=== PATIENT | female | born 1940 | race Caucasian/White ===

== ENCOUNTER → 2016-12-07 | Outpatient (CLI) | payer MEDICARE, OTHER ==
[2016-12-07 11:51] LABS: Blood Urea Nitrogen 16 mg/dL (7-17); Non-African American GFR(MDRD) >60 (>60 ml/min/1.73 sqM)
--- NOTE | 2016-12-07 12:45 | CT ---
EXAMINATION TYPE: CT soft tissue neck w con DATE OF EXAM: 12/07/2016 COMPARISON: NONE HISTORY: sore throat, feels like something is caught in throat CT DLP: 717 mGycm CONTRAST: CT scan of the neck is performed with IV Contrast, patient injected with 100 mL of Omnipaque 300. Contrast enhanced CT of the neck was performed from the skull base through the lung apices. AIRWAY: There is nonmass thickening of the left vallecula. Right vallecula is unremarkable. Pyrifor m sinuses are within normal limits. Epiglottis has a normal appearance. The the remainder of the supr aglottic, glottic, and subglottic portions of the airway appear patent and free of mass. SALIVARY GLANDS: The submandibular and parotid glands are free of mass or inflammatory process. THYROID GLAND: No nodules or masses seen. LYMPH NODES: No adenopathy seen greater than 1cm. LUNG APICES: No nodule or mass is seen. OTHER: Vascular structures are patent. No significant degenerative change of the cervical spine. N o abscess seen. IMPRESSION: There is nonmass thickening of the left vallecula. Right vallecula is unremarkable. Correlate clinic ally and consider direct visualization.
== END | disposition home or self-care (01) ==
LOC: RADCTMAIN 11:19
PROVIDERS: ATTEND Otolaryngology
DX: J38.7 Other diseases of larynx (principal); R22.1 Localized swelling, mass and lump, neck; Z88.0 Allergy status to penicillin; Z91.041 Radiographic dye allergy status
CPT/HCPCS: 82565; 84520; 70491; 36415; Q9967

== ENCOUNTER 2017-02-01 07:38 | Day surgery (SDC) | payer MEDICARE, OTHER ==
[2017-01-27 13:35] VITALS: BMI 31.1
[~2017-02-01 07:38] MED LIST: DEXAMETHASONE SOD PHOSPHATE 10 MG/ML 1 ML VIAL IV ONE; DEXAMETHASONE SOD PHOSPHATE 4 MG/ML 1 ML VIAL IV ONE; FAMOTIDINE 20 MG/2 ML VIAL IV ONE; HYDROmorphone 0.5 MG/0.5 ML SYRINGE IVP PRN; LACTATED RINGERS 1,000 ML IV SCH; LIDOCAINE 1% 20 ML VIAL (10MG/ML) FOR IV START INTRADERMA PRN; MIDAZOLAM 2 MG/2 ML VIAL IV PRN; ONDANSETRON 4 MG/2 ML VIAL IVP ONE; Pre Op ABX Message 1 EACH MISC MISCELLANE ONE; SCOPOLAMINE 1.5MG/72HR PATCH TRANSDERM ONE
[2017-02-01] MEDS ORDERED: MIDAZOLAM 2 MG/2 ML VIAL ONE (08:39)
[2017-02-01] MEDS ORDERED: SUCCINYLCHOLINE CHLORIDE 100 MG/5 ML SYR IV ONE (08:39)
[2017-02-01] MEDS ORDERED: fentaNYL (PF) 50 MCG/ML 2 ML AMP ONE (08:39)
[2017-02-01] MEDS ORDERED: ePHEDrine SULFATE/0.9% NACL/PF 50 MG/5 ML SYRINGE IV ONE (08:39)
[2017-02-01] MEDS ORDERED: PROPOFOL 10 MG/ML 20 ML VIAL IV ONE (08:39)
[2017-02-01] MEDS ORDERED: LIDOCAINE 1% INJ 10MG/ML (20 ML MDV) ONE (08:39)
--- NOTE | 2017-02-01 09:10 | P.OP ---
Date of Procedure: 02/01/17 Preoperative Diagnosis: Lingual tonsillar hypertrophy Postoperative Diagnosis: Same Procedure(s) Performed: Direct microlaryngoscopy with biopsy left base of tongue Anesthesia: MARZENAA Surgeon: Narendra Bass Estimated Blood Loss (ml): 2 Pathology: other (Left base of tongue) Condition: stable Disposition: PACU Indications for Procedure: This is a 76-year-old white female whose had some mild chronic sore throat on the left side for multiple months. Antibiotics do tend to help her symptoms but then her symptoms recur. He has been noted to have some lingual tonsillar hypertrophy left greater than right. Operative Findings: Diffuse lingual tonsillar hypertrophy greater on the left was biopsied Description of Procedure: The patient was brought in the operative suite and placed in a supine position. The patient underwent induction of general anesthesia with oral endotracheal intubation without difficulty. The patient was prepped and draped in usual aseptic fashion. Tooth guard was placed and direct laryngoscopy was performed with systematic evaluation of the base of tongue vallecula both piriform sinuses post cricoid area and endolarynx. There was minimal tonsillar hypertrophy although a little bit more on the left with some slight erythema. Therefore the laryngoscope was placed in suspension and the microscope was brought into position and the left base of tongue was biopsied with microcup forceps sites. Hemostasis was gained spontaneously. The patient was then allowed to emerge from anesthesia having tolerated procedure well hemostasis was noted to be good. She was extubated in the operating suite and transferred to postop recovery area in satisfactory condition.
[2017-02-01 09:36] VITALS: TEMP 98.5
[2017-02-01 10:17] VITALS: RESP 18
[2017-02-01] MEDS ORDERED: HYDROcodone/APAP 5-325MG 1 EACH TAB PO ONE (10:30)
[2017-02-01 10:46] VITALS: BP 120/70; PULSE 57
== END 2017-02-01 11:11 | disposition home or self-care (01) ==
LOC: OR 07:38
PROVIDERS: ATTEND Otolaryngology
DX: J35.01 Chronic tonsillitis (principal); I10 Essential (primary) hypertension; K21.9 Gastro-esophageal reflux disease without esophagitis; Z79.82 Long term (current) use of aspirin; Z79.899 Other long term (current) drug therapy; Z79.2 Long term (current) use of antibiotics; Z79.891 Long term (current) use of opiate analgesic; Z79.51 Long term (current) use of inhaled steroids; Z79.52 Long term (current) use of systemic steroids; Z91.041 Radiographic dye allergy status; Z91.011 Allergy to milk products; Z88.0 Allergy status to penicillin; Z91.09 Other allergy status, other than to drugs and biological substances
CPT/HCPCS: 31535; 88305; J2250; J1100; J2405; J2001; J3010; J0330; J2704; J1170

== ENCOUNTER 2017-04-27 15:11 | Emergency (ER) | payer MEDICARE, OTHER ==
[2017-04-27] MEDS ORDERED: methylPREDNISolone SOD SUCCI 125 MG/2 ML VIAL IV STA (15:22)
[2017-04-27] MEDS ORDERED: FAMOTIDINE 20 MG/2 ML VIAL IV STA (15:22)
[2017-04-27] MEDS ORDERED: diphenhydrAMINE 50 MG/ML 1 ML VIAL IVP STA (15:22)
--- NOTE | 2017-04-27 15:25 | ED ---
General Adult HPI - General Chief complaint: Allergic Reaction Stated complaint: Hives Time Seen by Provider: 04/27/17 15:18 Source: patient, family, RN notes reviewed Mode of arrival: wheelchair Limitations: no limitations - History of Present Illness Initial comments: Patient is a pleasant 76-year-old female presenting to the emergency Department with rash. Rash is pruritic. Patient started azithromycin in the morning and then sulfa eyedrops in the evening. Patient woke with rash. Rash is diffuse but more so on the trunk and face. Patient did see her doctor again this morning and received steroid injection without improvement of symptoms. Patient does feel somewhat short of breath and swollen in her throat as well. - Related Data Home Medications Medication Instructions Recorded Confirmed Bisoprol/Hydrochlorothiazide [Ziac 1 tab PO DAILY 06/13/14 04/27/17 5-6.25 MG] Tobra-Dexamet 0.3-0.1% Eye Cathy 1 - 2 drops BOTH EYES QID 04/27/17 04/27/17 [Tobradex Ophth Susp] predniSONE 20 mg PO DAILY 04/27/17 04/27/17 Allergies Allergy/AdvReac Type Severity Reaction Status Date / Time influenza virus vaccine, Allergy Severe muscle Verified 04/27/17 15:15 specific aches, [influenza virus coughing vacc,specific] Iodinated Contrast- Oral and Allergy Severe lightheadedness,passes Verified 08/09 16:47 IV Dye out,swelling,hives [Iodinated Contrast Media - IV Dye] Penicillins Allergy Severe Swelling, Verified 04/27/17 16:47 Hives Sulfa (Sulfonamide Allergy Rash/Hives Verified 04/27/17 15:16 Antibiotics) Review of Systems ROS Statement: Those systems with pertinent positive or pertinent negative responses have been documented in the HPI. ROS Other: All systems not noted in ROS Statement are negative. Constitutional: Denies: fever Eyes: Denies: eye pain ENT: Denies: ear pain Respiratory: Reports: dyspnea Cardiovascular: Denies: chest pain Endocrine: Denies: fatigue Gastrointestinal: Denies: abdominal pain Genitourinary: Denies: dysuria Musculoskeletal: Denies: back pain Skin: Reports: rash Neurological: Denies: weakness Past Medical History Past Medical History: GERD/Reflux, Hypertension, Osteoarthritis (OA), Skin Disorder Additional Past Medical History / Comment(s): lt eye flashes and floaters occasional, Hx ringing pao ears, SCIATICA, hx migraines, palpitations, hiatal hernia, frequent rashes in mouth and under breasts, currently rash on abdomen History of Any Multi-Drug Resistant Organisms: None Reported Past Surgical History: Back Surgery, Cholecystectomy, Heart Catheterization, Joint Replacement, Orthopedic Surgery Additional Past Surgical History / Comment(s): BACK SURGERY X2 FOR BONE SPURS AND DECOMPRESION. RT CARPAL TUNNEL, PAO CATARACTS. Left shoulder reverse total shoulder, rt shoulder replacement, eye surgery for macular hole Past Anesthesia/Blood Transfusion Reactions: No Reported Reaction Past Psychological History: No Psychological Hx Reported Smoking Status: Never smoker - Past Family History Mother Family Medical History: Cancer Additional Family Medical History / Comment(s): MOLE POSITIVE FOR CANCER. Father History Unknown: Yes Family Medical History: Dementia General Exam Limitations: no limitations General appearance: alert, in no apparent distress Head exam: Present: atraumatic Eye exam: Present: normal appearance, PERRL ENT exam: Present: normal oropharynx, other (No visible swelling of the pharynx , tongue, or lips.) Neck exam: Present: normal inspection Respiratory exam: Present: normal lung sounds bilaterally Cardiovascular Exam: Present: regular rate, normal rhythm GI/Abdominal exam: Present: soft. Absent: tenderness Extremities exam: Present: normal inspection Neurological exam: Present: alert Psychiatric exam: Present: normal affect, normal mood Skin exam: Present: rash (Diffuse urticarial rash mostly on the trunk and face.) Course Vital Signs 04/27/17 04/27/17 15:13 16:37 Temperature 97.7 F Pulse Rate 111 H 90 Respiratory 18 18 Rate Blood Pressure 124/74 116/61 O2 Sat by Pulse 93 L 95 Oximetry Medical Decision Making - Medical Decision Making Patient reexamined and symptom-free. Patient is comfortable with discharge home. Patient states her doctor did give her prescription for prednisone this morning. Patient is advised to take this. Disposition Clinical Impression: Allergic reaction Disposition: HOME SELF-CARE Condition: Stable Instructions: General Allergic Reaction (ED), Urticaria (ED) Additional Instructions: Please follow-up with primary care physician in the next day or 2 for recheck. Take prednisone prescription as prescribed. Take Benadryl or Claritin over-the- counter for the next 5 days. Return for difficulty in breathing, throat swelling, weakness, worsening symptoms or other concerns. Referrals: Hari Huber Jr, [Primary Care Provider] - 1-2 days Time of Disposition: 17:07
[2017-04-27 16:43] VITALS: RESP 18
[2017-04-27 17:46] VITALS: BP 142/74; PULSE 95; TEMP 98.6
== END 2017-04-27 17:27 | disposition home or self-care (01) ==
LOC: EC 15:11
DX: T78.40XA Allergy, unspecified, initial encounter (principal); I10 Essential (primary) hypertension; Z79.52 Long term (current) use of systemic steroids; Z79.899 Other long term (current) drug therapy; Z88.7 Allergy status to serum and vaccine; Z88.0 Allergy status to penicillin; Z88.2 Allergy status to sulfonamides; Z91.041 Radiographic dye allergy status
CPT/HCPCS: 99282; 96374; 96375 ×2; J1200; J2930

== ENCOUNTER → 2019-01-10 | Outpatient (CLI) | payer MEDICARE, OTHER ==
--- NOTE | 2019-01-10 11:57 | US ---
EXAMINATION TYPE: US venous doppler duplex LE LT DATE OF EXAM: 01/10/2019 11:42 AM COMPARISON: NONE CLINICAL HISTORY: M79.662 ,R22.42 PAIN AND SWELLING IN LT LOWER LIMB. Patient states having a bug bit e on ankle that was warm to touch. No leg redness or swelling. No hx blood clots. No blood thinner s. SIDE PERFORMED: Left TECHNIQUE: The lower extremity deep venous system is examined utilizing real time linear array sonog savita with graded compression, doppler sonography and color-flow sonography. VESSELS IMAGED: External Iliac Vein (EIV) Common Femoral Vein Deep Femoral Vein Greater Saphenous Vein * Femoral Vein Popliteal Vein Small Saphenous Vein * Proximal Calf Veins (* superficial vessels) Left Leg: Negative for DVT IMPRESSION: No evidence for DVT at this time.
== END | disposition home or self-care (01) ==
LOC: RADUSWWP 11:21
PROVIDERS: ATTEND Family Medicine
DX: M79.662 Pain in left lower leg (principal); R22.42 Localized swelling, mass and lump, left lower limb; Z88.0 Allergy status to penicillin; Z88.8 Allergy status to other drugs, medicaments and biological substances; Z91.041 Radiographic dye allergy status

== ENCOUNTER → 2019-03-08 | Outpatient (CLI) | payer MEDICARE, OTHER ==
--- NOTE | 2019-03-12 10:03 | MM ---
Reason for exam: screening (asymptomatic). Last mammogram was performed 4 years and 2 months ago. History: Patient is postmenopausal. Took estrogen for 15 years beginning at age 49. Took progesterone for 15 years beginning at age 49. Physical Findings: A clinical breast exam by your physician is recommended on an annual basis and results should be correlated with mammographic findings. MG 3D Screening Mammo W/Cad Bilateral CC and MLO view(s) were taken. Prior study comparison: January 20, 2015, bilateral MG screening mammo w CAD. There are scattered fibroglandular densities. There is chronic nodularity bilaterally. No significant changes when compared with prior studies. ASSESSMENT: Benign, BI-RAD 2 RECOMMENDATION: Routine screening mammogram of both breasts in 1 year.
== END | disposition home or self-care (01) ==
LOC: RADMAMWWP 13:50
PROVIDERS: ATTEND Family Medicine
DX: Z12.31 Encounter for screening mammogram for malignant neoplasm of breast (principal)
CPT/HCPCS: 77063; 77067

== ENCOUNTER → 2019-04-08 | Outpatient (CLI) | payer MEDICARE, OTHER ==
--- NOTE | 2019-04-08 09:15 | CT ---
EXAMINATION TYPE: CT shoulder RT wo con DATE OF EXAM: 04/08/2019 COMPARISON: Plain film radiograph 02/05/15 HISTORY: Primary osteoarthritis, right shoulder replacement CT DLP: 350.[address] of the right shoulder with reconstruction imaging. TECHNIQUE: Unenhanced CT of the right shoulder was performed with bone and soft tissue window setting s submitted in the axial coronal and sagittal planes. At a separate workstation 3-[id number] TR imaging was o btained. There is extensive streak artifact from the patient's humeral prosthesis limiting evaluatio n. FINDINGS: Proximal humeral prosthesis is in place. There is no evidence for periprosthetic lucency to suggest infection or loosening. There is a screw within the inferior margin of the glenoid which dem onstrates surrounding lucency which may reflect loosening. There is remodeling of the glenoid with po sterior subluxation of the prosthetic humeral head. There is no evidence for acute fracture. IMPRESSION: 1. Proximal right humeral prosthesis appears to be in place. 2. Screw within the glenoid with surrounding lucency may reflect loosening or infection. There is rem odeling of the glenoid with posterior subluxation noted of the prosthetic humeral head.
== END | disposition home or self-care (01) ==
LOC: RADCTMAIN 08:20
PROVIDERS: ATTEND Orthopaedic Surgery Sports Medicine
DX: M25.511 Pain in right shoulder (principal); M19.011 Primary osteoarthritis, right shoulder; Z96.611 Presence of right artificial shoulder joint

== ENCOUNTER → 2019-05-21 | Outpatient (CLI) | payer MEDICARE, OTHER ==
[2019-05-21 13:06] LABS: HCT 39.7 % (34.0-46.0); MCH 30.9 pg (25.0-35.0); MCHC 32.8 g/dL (31.0-37.0); MCV 94.4 fL (80.0-100.0); Mean Platelet Volume 7.1; Platelet Count 206 k/uL (150-450); RBC 4.21 m/uL (3.80-5.40); RDW 13.1 % (11.5-15.5); WBC 5.2 k/uL (3.8-10.6)
[2019-05-21 13:10] LABS: Appearance,Urine Clear (Clear); Bacteria,Urine Occasional /hpf; Bilirubin,Urine Negative (Negative); Blood,Urine Negative (Negative); Color,Urine Yellow; Glucose,Urine (UA) Negative (Negative); Ketones,Urine Negative (Negative); Leukocyte Esterase,Urine Moderate (Negative); Mucus,Urine Rare /hpf; Nitrite,Urine Positive (Negative); Protein,Urine Negative (Negative); RBC,Urine 1 /hpf (0-5); Squamous Epithelial Cell,Urine 1 /hpf (0-4); Urobilinogen,Urine <2.0 mg/dL (<2.0); WBC,Urine 17 /hpf (0-5)
[2019-05-21 13:11] LABS: INR 0.9 (<1.2); Partial Thromboplastin Time 24.9 sec (22.0-30.0); Prothrombin Time 9.9 sec (9.0-12.0)
[2019-05-21 13:12] LABS: Albumin 4.2 g/dL (3.5-5.0); Calcium 9.1 mg/dL (8.4-10.2); Potassium 4.1 mmol/L (3.5-5.1); Total Bilirubin 0.7 mg/dL (0.2-1.3); Total Protein 6.9 g/dL (6.3-8.2)
== END | disposition home or self-care (01) ==
LOC: LABPAT 11:53
PROVIDERS: ATTEND Orthopaedic Surgery Sports Medicine
DX: Z01.812 Encounter for preprocedural laboratory examination (principal); M19.011 Primary osteoarthritis, right shoulder; Z51.81 Encounter for therapeutic drug level monitoring; Z79.01 Long term (current) use of anticoagulants
CPT/HCPCS: 36415; 80053; 81001; 85027; 85610; 85730; 87070

== ENCOUNTER 2019-05-28 14:23 | Inpatient (IN) | payer MEDICARE, OTHER ==
[2019-05-22 09:53] VITALS: BMI 30.7
[~2019-05-28 14:23] MED LIST changes: +CLINDAMYCIN 900 MG in DEXTROSE 5% IN WATER 50 ML IVPB ONE; -DEXAMETHASONE SOD PHOSPHATE 10 MG/ML 1 ML VIAL IV ONE; -DEXAMETHASONE SOD PHOSPHATE 4 MG/ML 1 ML VIAL IV ONE; -FAMOTIDINE 20 MG/2 ML VIAL IV ONE; +GABAPENTIN 300 MG CAP PO ONE; -HYDROmorphone 0.5 MG/0.5 ML SYRINGE IVP PRN; -LIDOCAINE 1% 20 ML VIAL (10MG/ML) FOR IV START INTRADERMA PRN; +MELOXICAM 7.5 MG TAB PO ONE; -Pre Op ABX Message 1 EACH MISC MISCELLANE ONE; -SCOPOLAMINE 1.5MG/72HR PATCH TRANSDERM ONE; +TRANEXAMIC ACID 1,000 MG in SODIUM CHLORIDE 0.9% 100 ML IVPB ONE; +fentaNYL (PF) 50 MCG/ML 2 ML AMP IV PRN
[2019-05-28] MEDS ORDERED: DEXAMETHASONE SOD PHOSPHATE 10 MG/ML 1 ML VIAL IV ONE (15:06)
[2019-05-28] MEDS ORDERED: MIDAZOLAM 2 MG/2 ML VIAL IV ONE (15:19)
[2019-05-28] MEDS ORDERED: fentaNYL (PF) 50 MCG/ML 2 ML AMP IV ONE (15:20)
--- NOTE | 2019-05-28 15:41 | P.ANPRN ---
Procedure Note - Anesthesia - Nerve Block Performed Right Interscalene Single Time Out Performed: Yes Date of Procedure: 05/28/19 Procedure Start Time: 15:21 Procedure Stop Time: 15:28 Location of Patient: PreOp Specifically requested for management of pain by DrElisa: Erik Alonzo Sedation Type: Sedate with meaningful contact maintained Preparation: Sterile Prep Position: Supine Catheter: None Needle Types: Pajunk Needle Gauge: 21 Ultrasound used to visualize needle placement: Yes Ultrasound used to observe medication spread: Yes Injectate: 0.5% Ropivacaine (see comment for volume) (20 cc) Blood Aspirated: No Pain Paresthesia on Injection Noted: No Resistance on Injection: Normal Image Stored and Saved: Yes Events: Uneventful and Well Tolerated
[2019-05-28] MEDS ORDERED: HYDROmorphone 0.5 MG/0.5 ML SYRINGE IVP PRN ×3 (16:16)
[2019-05-28] MEDS ORDERED: METOCLOPRAMIDE 5 MG/ML 2 ML VIAL IVP PRN (16:16)
[2019-05-28] MEDS ORDERED: TEMAZEPAM 15 MG CAP PO PRN (16:16)
[2019-05-28] MEDS ORDERED: diphenhydrAMINE 25 MG CAP PO PRN (16:16)
[2019-05-28] MEDS ORDERED: SENNOSIDES-DOCUSATE SODIUM 1 EACH TAB PO PRN (16:16)
[2019-05-28] MEDS ORDERED: ONDANSETRON 4 MG/2 ML VIAL IVP PRN (16:16)
[2019-05-28] MEDS ORDERED: traMADol 50 MG TAB PO PRN (16:20)
[2019-05-28] MEDS ORDERED: GLYCOPYRROLATE 0.2 MG/ML 2 ML VIAL ONE (16:47)
[2019-05-28] MEDS ORDERED: fentaNYL (PF) 50 MCG/ML 2 ML AMP ONE (16:47)
[2019-05-28] MEDS ORDERED: NEOSTIGMINE 1 MG/ML 10 ML VIAL ONE (16:47)
[2019-05-28] MEDS ORDERED: DEXAMETHASONE SOD PHOSPHATE 4 MG/ML 1 ML VIAL ONE (16:47)
[2019-05-28] MEDS ORDERED: ROCURONIUM BROMIDE 10 MG/ML 10 ML VIAL IV ONE (16:47)
[2019-05-28] MEDS ORDERED: PHENYLEPHRINE-0.9% NACL SYG 1 MG/10 ML SYRINGE ONE (16:47)
[2019-05-28] MEDS ORDERED: ROPIVACAINE 5 MG/ML 30 ML VIAL ONE (16:47)
[2019-05-28] MEDS ORDERED: SUCCINYLCHOLINE CHLORIDE 100 MG/5 ML SYR IV ONE (16:47)
[2019-05-28] MEDS ORDERED: TRANEXAMIC ACID 1,000 MG/10 ML VIAL ONE (16:47)
[2019-05-28] MEDS ORDERED: SODIUM CHLORIDE 0.9% 100 ML BAG ONE (16:47)
[2019-05-28] MEDS ORDERED: PROPOFOL 10 MG/ML 20 ML VIAL IV ONE (16:47)
[2019-05-28] MEDS ORDERED: LIDOCAINE 1% INJ 10MG/ML (20 ML MDV) ONE (16:47)
[2019-05-28] MEDS ORDERED: CLINDAMYCIN 1,800 MG in SODIUM CHLORIDE 0.9% IRRIGATIO 3,000 ML IRRIGATION ONE (17:25)
[2019-05-28] MEDS ORDERED: VANCOMYCIN 1,000 MG VIAL MISCELLANE ONE (17:33)
--- NOTE | 2019-05-28 19:06 | XR ---
EXAMINATION TYPE: XR shoulder limited RT DATE OF EXAM: 05/28/2019 COMPARISON: NONE HISTORY: Postop shoulder surgery TECHNIQUE: Single view FINDINGS: There is right shoulder prosthesis. Components are in anatomic position. There is some atel ectasis right midlung. IMPRESSION: Right shoulder prosthesis in anatomic position.
[2019-05-28] MEDS: LACTATED RINGERS 1,000 ML IV SCH (23:52)
[2019-05-29 07:33] LABS: Basophils % (A) 1 %; Eosinophils % (A) 1 %; HGB 13.1 gm/dL (11.4-16.0); Lymphocytes # (A) 0.9 k/uL (1.0-4.8); Lymphocytes % (A) 11 %; MCH 30.9 pg (25.0-35.0); MCHC 32.6 g/dL (31.0-37.0); MCV 94.7 fL (80.0-100.0); Mean Platelet Volume 7.5; Monocytes # (A) 0.4 k/uL (0-1.0); Monocytes % (A) 5 %; Neutrophils # (A) 6.4 k/uL (1.3-7.7); Neutrophils % (A) 82 %; Platelet Count 207 k/uL (150-450); RBC 4.23 m/uL (3.80-5.40); WBC 7.8 k/uL (3.8-10.6)
[2019-05-29 07:48] VITALS: BP 144/68; PULSE 90; RESP 17; TEMP 98.1
[2019-05-29] MEDS: LACTATED RINGERS 1,000 ML IV SCH (09:07)
--- NOTE | 2019-05-29 09:55 | P.DS ---
Providers Date of admission: 05/28/19 14:23 Expected date of discharge: 05/29/19 Attending physician: Erik Alonzo Consults: 05/28/19 16:16 Consult Physician Routine Consulting Provider: Hari Huber Jr Consult Reason/Comments: post op medical management Do you want consulting provider notified?: Yes Primary care physician: Hari Huber - Discharge Diagnosis(es) (1) Status post total shoulder replacement Patient was admitted to the OR on 05/29/2019 to undergo removal of glenoid component hardware from previous right TSA. She had failed conservative measures as an outpatient and desired to proceed with elective surgery after given informed consent. She underwent the above procedure which she tolerated well without complication. Postoperative hospital course has remained without complication. On day of discharge she is afebrile, vital signs stable, labs within acceptable ranges, tolerating by mouth meds and diet, voiding without difficulty, positive flatus, denies abdominal pain or calf pain, pain is controlled on oral pain medication and has no new complaints. Wound is benign, neurovascular status is intact, calf is soft and nontender, abdomen soft and nontender. Review of systems is negative for numbness, tingling, fever, chills, chest pain, shortness of breath, nausea, vomiting, dizziness, headaches, slurred speech or other Current Visit: No Status: Acute Priority: Medium Procedures: Removal of glenoid component hardware s/p TSA Patient Condition at Discharge: Good Plan - Discharge Summary Discharge Rx Participant: Yes New Discharge Prescriptions: New traMADol HCL [Ultram] 50 mg PO Q4HR PRN #42 tab PRN Reason: Pain No Action Levothyroxine Sodium [Levoxyl] 25 mcg PO QAM Pravastatin Sodium [Pravachol] 10 mg PO DAILY Bisoprolol-Hctz 10-6.25 mg [Ziac 10-6.25 MG] 1 tab PO HS Vitamin D3 + K 1 spray PO DIRECTED Vitamin C(Dose Unknown) 1 tab PO DIRECTED Omeprazole 20 mg PO DAILY PRN PRN Reason: acid reflux Arnica Cream 1 applicate TOPICAL DAILY PRN PRN Reason: Pain Vit C/E/Zn/Coppr/Lutein/Zeaxan [Preservision Areds 2 Softgel] 2 each PO BID Discharge Medication List Arnica Cream 1 applicate TOPICAL DAILY PRN 05/22/19 [History] Bisoprolol-Hctz 10-6.25 mg [Ziac 10-6.25 MG] 1 tab PO HS 05/22/19 [History] Levothyroxine Sodium [Levoxyl] 25 mcg PO QAM 05/22/19 [History] Omeprazole 20 mg PO DAILY PRN 05/22/19 [History] Pravastatin Sodium [Pravachol] 10 mg PO DAILY 05/22/19 [History] Vit C/E/Zn/Coppr/Lutein/Zeaxan [Preservision Areds 2 Softgel] 2 each PO BID 05/22/19 [History] Vitamin C(Dose Unknown) 1 tab PO DIRECTED 05/22/19 [History] Vitamin D3 + K 1 spray PO DIRECTED 05/22/19 [History] traMADol HCL [Ultram] 50 mg PO Q4HR PRN #42 tab 05/29/19 [Rx] Follow up Appointment(s)/Referral(s): Hari Huber Jr, [Primary Care Provider] - 1 Week (office not answering please call to make appointment) Erik Alonzo MD [STAFF PHYSICIAN] - 06/10/19 2:30 pm Patient Instructions/Handouts: Shoulder Arthroplasty (DC) Activity/Diet/Wound Care/Special Instructions: Keep wound clean and dry Take meds as directed Follow-up with Dr. Alonzo in office Maintain sling May shower in 3 days if no bleeding Discharge Disposition: HOME WITH HOME HEALTH SERVICES
[2019-05-29] MEDS ORDERED: PANTOPRAZOLE 40 MG TABLET PO PRN (10:47)
[2019-05-29] MEDS ORDERED: LEVOTHYROXINE 25 MCG TAB PO SCH (11:00)
--- NOTE | 2019-05-29 14:44 | P.CONS ---
History of Present Illness - Reason for Consult Consult date: 05/29/19 Medical management hypertension, gastroesophageal reflux disease Requesting physician: Erik Alonzo - Chief Complaint Right shoulder pain status post total shoulder replacement - History of Present Illness This is a 78-year-old female with history of hypertension, gastroesophageal reflux disease, osteoarthritis and multiple other medical issues, underwent removal of prior hardware from previous right total shoulder surgery, status post right total shoulder replacement. Tolerated procedure well. Vital signs stable .Passing flatus. Pain controlled. Denies chest pain, palpitations or shortness of breath. Denies lightheadedness, dizziness or focal deficits. Denies nausea vomiting or diarrhea. Denies abdominal pain. Sling on right upper extremity. Eager for discharge home. Review of Systems Constitutional: Denied any fatigue denied any fever. Cardio vascular: denied any chest pain, palpitations Gastrointestinal denied any nausea vomiting Pulmonary: Denied any shortness of breath cough Neurologic denied any new focal deficits All inpatient medications were reviewed and appropriate changes in these medications as dictated in the interval history and assessment and plan. Past Medical History Past Medical History: Eye Disorder, GERD/Reflux, Hyperlipidemia, Hypertension, Osteoarthritis (OA), Thyroid Disorder Additional Past Medical History / Comment(s): lt eye flashes and floaters occasional, Hx ringing pao ears, SCIATICA, hx migraines, pcc. palpitations, hiatal hernia, pao macular degeneration, varicose veins, History of Any Multi-Drug Resistant Organisms: None Reported Past Surgical History: Back Surgery, Cholecystectomy, Heart Catheterization, Joint Replacement, Orthopedic Surgery Additional Past Surgical History / Comment(s): BACK SURGERY X2 FOR BONE SPURS AND DECOMPRESION. RT WRIST CARPAL TUNNEL, PAO CATARACTS. Left shoulder reverse total shoulder, rt shoulder replacement, eye surgery for macular hole Past Anesthesia/Blood Transfusion Reactions: No Reported Reaction Smoking Status: Never smoker - Past Family History Brother(s) Family Medical History: Cancer Mother Family Medical History: Cancer Additional Family Medical History / Comment(s): . Father History Unknown: Yes Family Medical History: Dementia Medications and Allergies Home Medications Medication Instructions Recorded Confirmed Type Arnica Cream 1 applicate TOPICAL DAILY PRN 05/22/19 05/22/19 History Bisoprolol-Hctz 10-6.25 mg [Ziac 1 tab PO HS 05/22/19 05/22/19 History 10-6.25 MG] Levothyroxine Sodium [Levoxyl] 25 mcg PO QAM 05/22/19 05/22/19 History Omeprazole 20 mg PO DAILY PRN 05/22/19 05/22/19 History Vit C/E/Zn/Coppr/Lutein/Zeaxan 2 each PO BID 05/22/19 05/22/19 History [Preservision Areds 2 Softgel] Vitamin C(Dose Unknown) 1 tab PO DIRECTED 05/22/19 05/22/19 History Vitamin D3 + K 1 spray PO DIRECTED 05/22/19 05/22/19 History Pravastatin Sodium [Pravachol] 10 mg PO DAILY #90 tab 05/29/19 Rx traMADol HCL [Ultram] 50 mg PO Q4HR PRN #42 tab 05/29/19 Rx Allergies Allergy/AdvReac Type Severity Reaction Status Date / Time influenza virus vaccine, Allergy Severe muscle Verified 05/28/19 14:49 specific aches, [influenza virus coughing vacc,specific] Iodinated Contrast Media Allergy Severe lightheadedness,passes Verified 05/28/19 14:49 [Iodinated Contrast Media - out,swelling,hives IV Dye] Penicillins Allergy Severe Swelling, Verified 05/28/19 14:49 Hives acetaminophen [From [place]] Allergy Hallucinati Verified 05/28/19 14:49 ons hydrocodone [From [facility]] Allergy Hallucinati Verified 05/28/19 14:49 ons Sulfa (Sulfonamide Allergy swelling, Verified 05/28/19 14:49 Antibiotics) hives Physical Exam Vitals: Vital Signs Temp Pulse Pulse Resp BP Pulse Ox 05/29/19 07:00 98.1 F 90 17 144/68 94 L 05/29/19 02:22 97.6 F 68 18 114/61 91 L 05/28/19 20:04 70 18 109/74 91 L 05/28/19 19:05 51 L 16 118/58 96 05/28/19 18:50 74 16 135/60 99 05/28/19 18:35 75 16 132/64 99 05/28/19 18:20 97.4 F L 72 15 156/65 94 L 05/28/19 15:32 64 16 145/67 98 05/28/19 14:46 98.1 F 66 16 150/77 96 Intake and Output 05/28/19 05/29/19 05/29/19 22:59 06:59 14:59 Intake Total 551 Output Total 50 Balance 501 Intake: IV 551 Output: Estimated Blood Loss 50 Other: Voiding Method Toilet Weight 76.43 kg 76.43 kg PHYSICAL EXAM: VITAL SIGNS: [As above] GENERAL: Sitting up in bed, no acute distress HEENT: Conjunctivae normal. eyes normal. Dry mucosa moist NECK: No JVD. No thyroid enlargement. No LNs CARDIOVASCULAR: S1, S2 regular.No murmur RESPIRATION: Breath sounds diminished in the bases. No rhonchi or crackles. No bronchial breathing. ABDOMEN: Soft, nontender . No guarding. no masses palpable. No ascites, No hepatosplenomegaly.Bowel sounds heard. LEGS: Minimal edema, wearing TEDS PSYCHIATRY: Alert and oriented X3, mood and affect normal. NERVOUS SYSTEM: Cranial N 2-12 grossly normal. Moves all 4 limbs. Diffuse weakness, No focal deficits. Strength and sensation grossly intact.. Skin:no rash. 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 Home meds have been reviewed and resumed accordingly. Aggressive pulmonary toileting with incentive spirometer reinforced. Discharge planning in progress for today as per orthopedic surgery. Pain management, anticoagulation as per primary. Thank you Dr. Alonzo for the consult. The impression and plan of care has been dictated as directed. : I performed a history and examination of this patient, discussed the same with the dictator. I agree with the dictator's note ,documented as a scribe. Any additional findings or plans will be noted.
[2019-05-29] MEDS ORDERED: BISOPROLOL-HCTZ 10-6.25 MG 1 EACH TAB PO SCH (21:00)
[2019-05-29] MEDS ORDERED: Vit C/E/Zn/Coppr/Lutein/Zeaxan [Preservision Areds 2 Softgel] PO SCH (21:00)
--- NOTE | 2019-05-29 23:26 | OP ---
OPERATIVE REPORT DATE OF PROCEDURE: 05/28/2019. SURGEON: Erik Alonzo M.D. INDUSTRIAL RELATIONS REPRESENTATIVE: Aaron MEAD. PREOPERATIVE DIAGNOSIS: Right shoulder loose glenoid component. POSTOPERATIVE DIAGNOSIS: Right shoulder loose glenoid component. OPERATION PERFORMED: Right shoulder removal of loose glenoid component. ANESTHESIA: General endotracheal. ESTIMATED BLOOD LOSS: 50 mL. DRAINS: None. COMPLICATIONS: None apparent. DISPOSITION: Postanesthesia care unit. INDICATIONS: Lucita is a pleasant 78-year-old female who underwent a right total shoulder arthroplasty 7 or 8 years ago. She has developed sharp pain in the right shoulder in the last 6 months. Workup including x-rays, CT scan revealed loosening of the glenoid component. At this point, it is felt that she has failed nonoperative treatment and elected to proceed with operative intervention. The risks of procedure were discussed with her in detail. These risks include, but not limited to risk of infection, nerve damage, bleeding, pain, instability in the shoulder and deep infection. There is also small risk of deep vein thrombosis which could lead to fatal pulmonary embolism. The patient understood the risks. I did discuss with her the possibility of removing the glenoid component versus removing the glenoid component and revising her shoulder arthroplasty to a reverse total shoulder replacement. We did discuss preoperatively that this would depend on the quality of the bone in the glenoid vault. All of her questions with regard to this were answered to her satisfaction. Appropriate informed consent was obtained. DESCRIPTION OF THE PROCEDURE: Patient identified in preop holding area. Surgical site was marked by both the patient and myself. She was given 2 g of Ancef IV for prophylactic purposes. She was then transferred to the operative suite. She was placed supine on the operative table. General anesthetic was then administered and dosed per the anesthesia without apparent complication. This patient was then placed in the beach chair position well-padded in preparation for surgery. Great care was taken to ensure the cervical spine is in neutral alignment well-padded and maintained that way throughout the operative procedure. Great care was also taken to ensure that her legs were appropriately padded as well. The patient's right upper extremity than prepped and draped in usual sterile fashion. Standard surgical pause undertaken to ensure that appropriate preop antibiotics were given that we were operating the correct site. All staff were in agreement we proceeded. The previous deltopectoral incision was then marked with a surgical pen. The incision was then made with a 10 blade scalpel. Dissection carried down sharply to the deltoid fascia. The deltopectoral interval was identified at the level of the clavicle. A small band retractor was then placed onto the proximal deltoid. I then released the deltoid fascia on the lateral aspect of the cephalic vein. The vein was protected and left in its bed medially. I then identified the clavipectoral fascia. There was some scarring in this area due to previous surgery. I then released the clavipectoral fascia on the lateral aspect of the conjoined tendon. I then utilized my finger to spread the interval between the conjoined tendon and the subscapularis. I felt for the axillary nerve which was readily palpable. Surprisingly the subscapularis was intact as was the supraspinatus and infraspinatus. The previous FiberWire sutures were then removed. I then proceeded with release of the subscapularis in the anterior inferior shoulder capsule. The rotator interval was again identified. The course of the bicipital groove was also identified. I then released the rotator interval. It was released at the base of the coracoid and then out laterally. The subscapularis and anterior capsule were then released intratendinously. The subscapularis and capsule release extended the distal lazy-S fashion approximately 1 cm medial to the bicipital groove. The loose glenoid component was then easily removed. There was no evidence of deep infection. The glenoid vault was then inspected. She did have some anterior inferior loss likely due to a loose glenoid component. Given her age and bone quality, and the fact that her rotator cuff was completely intact, I made a decision to proceed with just leaving Lucita with a hemiarthroplasty. We did talk about this preoperatively. The joint was then thoroughly irrigated with sterile saline solution with antibiotic added. The rotator interval was then closed with #1 Vicryl interrupted suture. The subscapularis tenotomy was then repaired with #2 FiberWire interrupted suture. The wound was again thoroughly irrigated with sterile saline solution with antibiotic added. Approximately 500 mg of vancomycin powder then placed deep. Then, the deltopectoral interval was then loosely closed with 0 Vicryl interrupted suture. Again the wound was thoroughly irrigated. The remaining 500 mg of vancomycin powder were then placed subcutaneously. The subcutaneous tissue was closed with 2-0 Vicryl interrupted suture and the skin was closed with a running 3-0 Quill suture. Dermabond was applied to the incision. All sponge and needle counts were deemed correct prior to closure. The patient tolerated the procedure without apparent complication. She was transferred recovery room in stable condition. NO / DIAMOND: [id number] /
[2019-05-30] MEDS ORDERED: PRAVASTATIN SODIUM 20 MG TAB PO SCH (09:00)
== END 2019-05-29 13:13 | disposition home health service (06) | DRG 483 ==
LOC: 2ORMAIN 14:23 → EDSTATUS 14:55 → 4SSUR 18:52
PROVIDERS: ADMIT Orthopaedic Surgery Sports Medicine; ATTEND Orthopaedic Surgery Sports Medicine
PROC: 0RRJ00Z Replacement of Right Shoulder Joint with Reverse Ball and Socket Synthetic Substitute, Open Approach (ICD-10-PCS; principal; 2019-05-28 15:50)
DX: M19.011 Primary osteoarthritis, right shoulder (principal); I10 Essential (primary) hypertension; E03.9 Hypothyroidism, unspecified; G43.909 Migraine, unspecified, not intractable, without status migrainosus; H35.30 Unspecified macular degeneration; K44.9 Diaphragmatic hernia without obstruction or gangrene; E78.5 Hyperlipidemia, unspecified; K21.9 Gastro-esophageal reflux disease without esophagitis; Z79.890 Hormone replacement therapy; Z79.899 Other long term (current) drug therapy
CPT/HCPCS: 64415; 76942; 85025

== ENCOUNTER 2019-06-14 12:56 | Emergency (ER) | payer MEDICARE, OTHER ==
[2019-06-14 13:07] VITALS: TEMP 98
[2019-06-14] MEDS ORDERED: SODIUM CHLORIDE 0.9% 1,000 ML IV STA (13:27)
[2019-06-14] MEDS ORDERED: MORPHINE SULFATE 4 MG/ML SYRINGE IV STA (13:27)
[2019-06-14] MEDS ORDERED: FAMOTIDINE 20 MG/2 ML VIAL IV STA (13:28)
[2019-06-14] MEDS ORDERED: methylPREDNISolone SOD SUCCI 125 MG/2 ML VIAL IV STA (13:28)
[2019-06-14] MEDS ORDERED: diphenhydrAMINE 50 MG/ML 1 ML VIAL IVP STA (13:28)
--- NOTE | 2019-06-14 13:31 | ED ---
General Adult HPI - General Chief complaint: Abdominal Pain Stated complaint: Abdominal pain Time Seen by Provider: 06/14/19 13:12 Source: patient, RN notes reviewed Mode of arrival: ambulatory Limitations: no limitations - History of Present Illness Initial comments: Patient is a pleasant 78 over female presenting to the emergency Department with complaints of lower abdominal discomfort. Onset of symptoms was 2 days ago. Patient has a known cyst were her left ovary used to be. Patient states the past 2 days she is having discomfort in the left lower abdomen that does radiate towards the right. Discomfort is only mild at rest however severe with going from a sitting to standing position. Patient states he gets so severe at times that she can't walk. Patient denies any actual leg weakness. No history of similar symptoms previously. No fevers. No nausea vomiting. No constipation or diarrhea. - Related Data Home Medications Medication Instructions Recorded Confirmed Arnica Cream 1 applicate TOPICAL DAILY PRN 05/22/19 05/22/19 Bisoprolol-Hctz 10-6.25 mg [Ziac 1 tab PO HS 05/22/19 05/22/19 10-6.25 MG] Levothyroxine Sodium [Levoxyl] 25 mcg PO QAM 05/22/19 05/22/19 Omeprazole 20 mg PO DAILY PRN 05/22/19 05/22/19 Vit C/E/Zn/Coppr/Lutein/Zeaxan 2 each PO BID 05/22/19 05/22/19 [Preservision Areds 2 Softgel] Vitamin C(Dose Unknown) 1 tab PO DIRECTED 05/22/19 05/22/19 Vitamin D3 + K 1 spray PO DIRECTED 05/22/19 05/22/19 Previous Rx's Medication Instructions Recorded Pravastatin Sodium [Pravachol] 10 mg PO DAILY #90 tab 05/29/19 traMADol HCL [Ultram] 50 mg PO Q4HR PRN #42 tab 05/29/19 Allergies Allergy/AdvReac Type Severity Reaction Status Date / Time influenza virus vaccine, Allergy Severe muscle Verified 06/14/19 13:03 specific aches, [influenza virus coughing vacc,specific] Iodinated Contrast Media Allergy Severe lightheadedness,passes Verified 06/14/19 13:03 [Iodinated Contrast Media - out,swelling,hives IV Dye] Penicillins Allergy Severe Swelling, Verified 06/14/19 13:03 Hives acetaminophen [From [place]] Allergy Hallucinati Verified 06/14/19 13:03 ons hydrocodone [From [place]] Allergy Hallucinati Verified 06/14/19 13:03 ons Sulfa (Sulfonamide Allergy swelling, Verified 06/14/19 13:03 Antibiotics) hives Review of Systems ROS Statement: Those systems with pertinent positive or pertinent negative responses have been documented in the HPI. ROS Other: All systems not noted in ROS Statement are negative. Constitutional: Denies: fever Eyes: Denies: eye pain ENT: Denies: ear pain Respiratory: Denies: cough Cardiovascular: Denies: chest pain Endocrine: Denies: fatigue Gastrointestinal: Reports: as per HPI Genitourinary: Denies: dysuria, hematuria Musculoskeletal: Denies: back pain Skin: Denies: rash Neurological: Reports: as per HPI Past Medical History Past Medical History: Eye Disorder, GERD/Reflux, Hyperlipidemia, Hypertension, Osteoarthritis (OA), Thyroid Disorder Additional Past Medical History / Comment(s): lt eye flashes and floaters occasional, Hx ringing pao ears, SCIATICA, hx migraines, pcc. palpitations, hiatal hernia, pao macular degeneration, varicose veins, History of Any Multi-Drug Resistant Organisms: None Reported Past Surgical History: Back Surgery, Cholecystectomy, Heart Catheterization, Joint Replacement, Orthopedic Surgery Additional Past Surgical History / Comment(s): BACK SURGERY X2 FOR BONE SPURS AND DECOMPRESION. RT WRIST CARPAL TUNNEL, PAO CATARACTS. Left shoulder reverse total shoulder, rt shoulder replacement, eye surgery for macular hole Past Anesthesia/Blood Transfusion Reactions: No Reported Reaction Past Psychological History: No Psychological Hx Reported Smoking Status: Never smoker Past Alcohol Use History: None Reported Past Drug Use History: None Reported - Past Family History Brother(s) Family Medical History: Cancer Mother Family Medical History: Cancer Additional Family Medical History / Comment(s): . Father History Unknown: Yes Family Medical History: Dementia General Exam Limitations: no limitations General appearance: alert, in no apparent distress Head exam: Present: normocephalic Eye exam: Present: normal appearance, PERRL ENT exam: Present: normal oropharynx Neck exam: Present: normal inspection Respiratory exam: Present: normal lung sounds bilaterally Cardiovascular Exam: Present: regular rate, normal rhythm Expanded Peripheral pulses: 2+: Dorsalis Pedis (R), Dorsalis Pedis (L) GI/Abdominal exam: Present: soft, tenderness (Mild right lower abdomen tenderness, moderate left lower abdominal tenderness), normal bowel sounds. Absent: distended, guarding, rebound, rigid, pulsatile mass Extremities exam: Present: normal inspection, full ROM. Absent: tenderness Neurological exam: Present: alert. Absent: motor sensory deficit Psychiatric exam: Present: normal affect, normal mood Skin exam: Present: normal color Course Vital Signs 06/14/19 06/14/19 13:03 15:22 Temperature 98 F Pulse Rate 65 64 Respiratory 18 19 Rate Blood Pressure 135/75 132/69 O2 Sat by Pulse 95 95 Oximetry Medical Decision Making - Medical Decision Making Patient reevaluated and resting comfortably in bed. Abdomen soft and nontender. Patient family updated on results and need for follow-up. - Lab Data Result diagrams: 06/14/19 14:07 06/14/19 14:07 Lab Results 06/14/19 06/14/19 06/14/19 Range/Units 14:07 14:07 14:07 WBC 4.5 (3.8-10.6) k/uL RBC 4.26 (3.80-5.40) m/uL Hgb 13.1 (11.4-16.0) gm/dL Hct 39.7 (34.0-46.0) % MCV 93.1 (80.0-100.0) fL MCH 30.8 (25.0-35.0) pg MCHC 33.0 (31.0-37.0) g/dL RDW 13.2 (11.5-15.5) % Plt Count 220 (150-450) k/uL Neutrophils % 58 % Lymphocytes % 30 % Monocytes % 4 % Eosinophils % 5 % Basophils % 1 % Neutrophils # 2.6 (1.3-7.7) k/uL Lymphocytes # 1.4 (1.0-4.8) k/uL Monocytes # 0.2 (0-1.0) k/uL Eosinophils # 0.2 (0-0.7) k/uL Basophils # 0.0 (0-0.2) k/uL PT 9.6 (9.0-12.0) sec INR 0.9 (<1.2) APTT 24.4 (22.0-30.0) sec Sodium 139 (137-145) mmol/L Potassium 3.8 (3.5-5.1) mmol/L Chloride 106 (98-107) mmol/L Carbon Dioxide 25 (22-30) mmol/L Anion Gap 8 mmol/L BUN 18 H (7-17) mg/dL Creatinine 0.93 (0.52-1.04) mg/dL Est GFR (CKD-EPI)AfAm 70 (>60 ml/min/1.73 sqM) Est GFR (CKD-EPI)NonAf 60 (>60 ml/min/1.73 sqM) Glucose 105 H (74-99) mg/dL Calcium 9.3 (8.4-10.2) mg/dL Total Bilirubin 0.6 (0.2-1.3) mg/dL AST 22 (14-36) U/L ALT 16 (4-34) U/L Alkaline Phosphatase 75 (38-126) U/L Total Protein 6.8 (6.3-8.2) g/dL Albumin 4.2 (3.5-5.0) g/dL Amylase 63 (30-110) U/L Lipase 244 (23-300) U/L - Radiology Data Radiology results: report reviewed (Computed tomography scan of the abdomen pelvis reveals no acute process. 4.9 cystic structure left pelvis. Small amount of free fluid in the pelvis.) Disposition Clinical Impression: Abdominal pain Disposition: HOME SELF-CARE Condition: Stable Instructions (If sedation given, give patient instructions): Abdominal Pain (ED) Additional Instructions: Please follow-up with primary care physician in the next couple of days for recheck. Return for increased pain, fevers, weakness, worsening symptoms or other concerns. Is patient prescribed a controlled substance at d/c from ED?: No Referrals: Hari Huber Jr, DO [Primary Care Provider] - 1-2 days Rebecca Vila MD [STAFF PHYSICIAN] - 1-2 days Time of Disposition: 15:54
[2019-06-14 14:17] LABS: Basophils % (A) 1 %; Eosinophils # (A) 0.2 k/uL (0-0.7); Eosinophils % (A) 5 %; HCT 39.7 % (34.0-46.0); HGB 13.1 gm/dL (11.4-16.0); Lymphocytes # (A) 1.4 k/uL (1.0-4.8); Lymphocytes % (A) 30 %; MCH 30.8 pg (25.0-35.0); MCV 93.1 fL (80.0-100.0); Mean Platelet Volume 7.2; Monocytes # (A) 0.2 k/uL (0-1.0); Monocytes % (A) 4 %; Neutrophils # (A) 2.6 k/uL (1.3-7.7); Neutrophils % (A) 58 %; Platelet Count 220 k/uL (150-450); RBC 4.26 m/uL (3.80-5.40); RDW 13.2 % (11.5-15.5); WBC 4.5 k/uL (3.8-10.6)
[2019-06-14 14:26] LABS: Albumin 4.2 g/dL (3.5-5.0); Calcium 9.3 mg/dL (8.4-10.2); Potassium 3.8 mmol/L (3.5-5.1); Total Bilirubin 0.6 mg/dL (0.2-1.3); Total Protein 6.8 g/dL (6.3-8.2)
[2019-06-14 14:30] LABS: INR 0.9 (<1.2); Partial Thromboplastin Time 24.4 sec (22.0-30.0); Prothrombin Time 9.6 sec (9.0-12.0)
--- NOTE | 2019-06-14 14:56 | CT ---
EXAMINATION TYPE: CT abdomen pelvis w con DATE OF EXAM: 06/14/2019 COMPARISON: HISTORY: Left abdominal pain radiating down left leg CT DLP: 950.3 mGycm CONTRAST: CT scan of the abdomen and pelvis is performed without Oral Contrast and with IV Contrast, patient in jected with 80 mL of Isovue 300. FINDINGS: LUNG BASES-: No visible nodule. No infiltrate. LIVER/GB: The gallbladder is surgically absent. No space occupying hepatic lesion. Biliary tree is of normal caliber. PANCREAS: No inflammation. No distinct mass. SPLEEN: No splenic enlargement. No lesion seen. ADRENALS: No nodule. No thickening. KIDNEYS/BLADDER: No hydronephrosis. No nephrolithiasis. No distinct renal mass. Urinary bladder g rossly unremarkable. BOWEL: Normal appendix. Normal bowel caliber. No inflammation. GENITAL ORGANS: The uterus is mildly atrophic. There is a cyst identified within the left hemipelvis measuring 4.9 cm. This is felt to arise from the left ovary. No evidence for right ovarian cyst or m ass. LYMPH NODES: No greater than 1cm abdominal or pelvic lymph nodes are appreciated. AORTA: No significant abnormality. OSSEOUS STRUCTURES: Severe degenerative changes with vacuum disc and scoliosis noted. OTHER: No significant additional abnormality is seen. IMPRESSION: 1. No acute intra-abdominal process seen. Cystic lesion left adnexa. Correlate with ultrasound. Small amount of free fluid within the pelvis.
[2019-06-14] MEDS ORDERED: traMADol 50 MG STARTER PACK 3 TAB BTL PO STA (15:55)
[2019-06-14 16:08] VITALS: BP 139/70; PULSE 63; RESP 18
== END 2019-06-14 16:13 | disposition home or self-care (01) ==
LOC: EC 12:56
DX: R10.32 Left lower quadrant pain (principal); R10.31 Right lower quadrant pain; K21.9 Gastro-esophageal reflux disease without esophagitis; I10 Essential (primary) hypertension; E07.9 Disorder of thyroid, unspecified; Z88.0 Allergy status to penicillin; Z88.2 Allergy status to sulfonamides; Z88.5 Allergy status to narcotic agent; Z88.7 Allergy status to serum and vaccine; Z91.041 Radiographic dye allergy status; Z79.890 Hormone replacement therapy; Z79.899 Other long term (current) drug therapy; Z90.49 Acquired absence of other specified parts of digestive tract; Z87.19 Personal history of other diseases of the digestive system
CPT/HCPCS: 36415; 80053; 82150; 83690; 85025; 85610; 85730; 74177; 99284; 96374; 96375 ×3; 96361 ×2; J2270; J1200; J2930; Q9967

== ENCOUNTER → 2019-06-28 | Outpatient (CLI) | payer MEDICARE, OTHER ==
--- NOTE | 2019-06-28 10:10 | CT ---
EXAMINATION TYPE: CT lumbar spine wo con DATE OF EXAM: 06/28/2019 COMPARISON: None HISTORY: low back pain CT DLP: 898 mGycm CONTRAST: None TECHNIQUE: CT of the lumbar spine is performed on a spiral scan at 3 mm thick sections. Reconstructed images are performed in the coronal and sagittal planes. FINDINGS: Scoliosis is present. There is loss of disc height L2-3 L3-4 L4-5 L5-S1. Disc space narrowi ng is present L1-2. Vacuum disc phenomenon is present L5-S1. T12-L1: No focal disc herniation or significant disc bulge is evident. No spinal canal stenosis or neural foraminal stenosis is present. L1-L2: Mild endplate changes may has some mild anterior thecal sac flattening. No AP spinal canal harrison nosis is present. Severe right foraminal stenosis is present. L2-L3: No focal disc herniation or significant disc bulge is evident. Right paracentral endplate spur ring from L3 is present. No spinal canal stenosis present. Very Severe right foraminal stenosis is pr esent. Mild left foraminal stenosis is present. L3-L4: No focal disc herniation or significant disc bulge is evident. No spinal canal stenosis is pre sent. Degenerative changes on the right and at the right facet have severe foraminal narrowing. Some mild left foraminal narrowing is also noted L4-L5: No focal disc herniation or significant disc bulge is evident. No spinal canal stenosis is p resent. There appears to be spondylolysis of L 4 on the left. Foraminal narrowing may be moderate on the left. Moderate right foraminal narrowing is present L5-S1: There is a grade 1 spondylolisthesis. Disc uncovering is anterior thecal sac contact. No AP sp inal canal stenosis is present. Appears be a left laminectomy without stenosis. Foramen and moderate narrowing bilaterally. There is scoliosis present with the convexity to the left centered at L2-L3. Endplate changes are pre sent. IMPRESSION: Scoliosis with multilevel changes. Disc space narrowing is present. Severe foraminal stenosis is note d most notably at L2-3 on the right, L3-4 on the right. Grade 1 spondylolisthesis of L5 anterior on S 1 is present.
== END | disposition home or self-care (01) ==
LOC: RADCTMAIN 07:51
PROVIDERS: ATTEND Family Medicine
DX: M99.73 Connective tissue and disc stenosis of intervertebral foramina of lumbar region (principal); M48.061 Spinal stenosis, lumbar region without neurogenic claudication; M43.17 Spondylolisthesis, lumbosacral region; M41.86 Other forms of scoliosis, lumbar region; Z88.0 Allergy status to penicillin; Z88.1 Allergy status to other antibiotic agents; Z91.041 Radiographic dye allergy status
CPT/HCPCS: 72131

== ENCOUNTER → 2019-09-10 | Outpatient (CLI) | payer MEDICARE, OTHER ==
--- NOTE | 2019-09-10 13:45 | CT ---
EXAMINATION TYPE: CT hip RT wo con DATE OF EXAM: 09/10/2019 COMPARISON: CT abdomen pelvis 06/14/2019 HISTORY: Rt hip and thigh pain CT DLP: 683.9 mGycm Automated exposure control for dose reduction was used. FINDINGS: Right femoral head articulates with the acetabulum. Some joint space narrowing is present which can b e related to some osteoarthritic degenerative change. No acute fractures evident. Surrounding soft ti ssues appear unremarkable. No fractures within the visualized pelvis are evident. Reconstructed images in the coronal and sagittal plane are reviewed. IMPRESSION: 1. MILD OSTEOARTHRITIC DEGENERATIVE CHANGES RIGHT HIP. 2. NO ACUTE OSSEOUS ABNORMALITY EVIDENT.
== END | disposition home or self-care (01) ==
LOC: RADCTMAIN 13:06
PROVIDERS: ATTEND Family Medicine
DX: M16.11 Unilateral primary osteoarthritis, right hip (principal); M79.651 Pain in right thigh; Z88.0 Allergy status to penicillin; Z88.1 Allergy status to other antibiotic agents; Z91.041 Radiographic dye allergy status; Z88.8 Allergy status to other drugs, medicaments and biological substances

== ENCOUNTER → 2019-11-12 | Outpatient (CLI) | payer MEDICARE, OTHER ==
--- NOTE | 2019-11-12 18:26 | XR ---
EXAMINATION TYPE: XR lumbar spine with bend/flex, XR scoliosis survey DATE OF EXAM: 11/12/2019 CLINICAL HISTORY: Chronic back pain, sciatica pain, pain to both legs. TECHNIQUE: Frontal, lateral neutral/flexion/extension, and oblique images of the lumbar spine are obt ained. Scoliosis radiographic survey obtained. COMPARISON: CT lumbar spine 06/28/2019 FINDINGS: There are 5 lumbar type vertebral bodies. There is S-shaped curvature with 28 degrees of d extroscoliosis of the thoracic spine and 39 degrees of levoscoliosis of the lumbar spine. There is de creased osseous mineralization. There is multilevel disc space narrowing, osteophytic spurring and en dplate degenerative changes, and facet arthropathy. There is fixed grade 1 anterolisthesis of L5 on S 1. There is grade 1 retrolisthesis of L3 on L4 which improves with extension. There is right-sided li [place] bony fusion of L4 and L5. There is calcification of the abdominal aorta. Rounded calcification o verlying the left pelvis may represent vascular calcification versus soft tissue calcification. IMPRESSION: 1. S-shaped scoliosis with 28 degrees of dextroscoliosis of the thoracic spine and 39 degrees of lev oscoliosis of the lumbar spine. 2. Diffuse marked degenerative changes as above, worst at the lumbar spine. 3. Grade 1 retrolisthesis of L3 on L4 improved with extension. 4. Fixed grade 1 anterolisthesis of L5 on S1. 5. Decreased osseous mineralization.
--- NOTE | 2019-11-12 18:51 | MR ---
EXAMINATION TYPE: MR lumbar spine wo con DATE OF EXAM: 11/12/2019 COMPARISON: CT lumbar spine 06/28/2019 HISTORY: Lower back pain, sciatic pain down both legs x 10years. prior surgery in 2011 TECHNIQUE: Multiplanar, multisequence images of the lumbar spine were acquired. There is marked levoscoliosis of the lumbar spine. Disc desiccation from L1-L2 through L5-S1. There i s multilevel disc bulging and diffuse facet arthropathy. T12-L1: No canal stenosis is present. Foramina are patent bilaterally. L1-L2: Moderate canal stenosis is present due to circumferential disc bulge with superimposed right s ubarticular and foraminal disc protrusion, with approximately 4 mm of superior extrusion and 3 mm of inferior extrusion. There is also right greater than left facet arthropathy. There is severe left belle ral foramina narrowing and obliteration of the right neural foramina. L2-L3: Mild canal stenosis. Left neural foramina is patent. Right neural foramina is severely narrowe d. L3-L4: Mild canal stenosis. Left neural foramina is patent. Right neural foramen is severely narrowed . L4-L5: No Canal stenosis. Left neural foramina is severely narrowed. Right neural foramina is moderat richie narrowed. L5-S1: No canal stenosis. Left neural foramina is severely narrowed. Right neural foramina is moderat richie narrowed. There is grade 1 anterolisthesis of L5 on S1 with unroofing of the disc. Conus medullaris has a normal appearance and terminates at the level of L1-2. IMPRESSION: Levoscoliosis of the lumbar spine, degenerative disc disease, and facet arthropathy contribute to moni mary degrees of canal stenosis and severe neural foramina narrowing as above. Moderate canal stenosis at L1-L2.
== END | disposition home or self-care (01) ==
LOC: RADMRIMAIN 08:13
PROVIDERS: ATTEND Neurological Surgery
DX: M48.061 Spinal stenosis, lumbar region without neurogenic claudication (principal); M43.16 Spondylolisthesis, lumbar region; M43.17 Spondylolisthesis, lumbosacral region; M47.896 Other spondylosis, lumbar region; M51.36 Other intervertebral disc degeneration, lumbar region; M41.86 Other forms of scoliosis, lumbar region
CPT/HCPCS: 72082; 72114; 72148

== ENCOUNTER → 2020-01-08 | Outpatient (CLI) | payer MEDICARE, OTHER ==
[2020-01-08 09:05] VITALS: BP 139/80; PULSE 61; RESP 18; TEMP 98.3
--- NOTE | 2020-01-08 09:43 | P.CONS ---
History of Present Illness - Reason for Consult Consult date: 01/08/20 - Chief Complaint Lower back and bilateral leg pain - History of Present Illness This is a 79-year-old lady with history of chronic back pain which started in 2005 with no precipitating events. The patient then had lumbar laminectomy which helped her pain for a while as she states. She also received multiple steroid injections in her lower back which also give her temporary relief of pain. The pain has been constant in her back with some exacerbations with walking or standing on doing her daily activities. The patient lies down when the pain is severe. She denies any bowel or bladder dysfunction, she does feel some weakness in the right lower extremity. The pain occasionally wakes her up at night. Sometimes she feels numbness and tingling in the left calf area. The pain goes across her lower back and radiates on the right side to the right calf and on the left side to the foot occasionally. The patient denies any history of diabetes or taken anticoagulants. Review of Systems Constitutional: Denies chills, Denies fever Ears, nose, mouth and throat: Denies headache, Denies sore throat Cardiovascular: Denies chest pain, Denies shortness of breath Respiratory: Denies cough Neurological: Reports as per HPI Past Medical History Past Medical History: Eye Disorder, GERD/Reflux, Hyperlipidemia, Hypertension, Osteoarthritis (OA), Thyroid Disorder Additional Past Medical History / Comment(s): Hx ringing pao ears, SCIATICA, hx migraines years ago, occ. palpitations, hiatal hernia, pao macular degeneration, varicose veins, left ovarian cyst History of Any Multi-Drug Resistant Organisms: None Reported Past Surgical History: Back Surgery, Cholecystectomy, Heart Catheterization, Joint Replacement, Orthopedic Surgery Additional Past Surgical History / Comment(s): BACK SURGERY X2 FOR BONE SPURS AND DECOMPRESSION. RT WRIST CARPAL TUNNEL, PAO CATARACTS. Left shoulder reverse total shoulder, rt shoulder replacement, eye surgery for macular hole Past Anesthesia/Blood Transfusion Reactions: No Reported Reaction Past Psychological History: No Psychological Hx Reported Smoking Status: Never smoker Past Alcohol Use History: None Reported Past Drug Use History: None Reported - Past Family History Brother(s) Family Medical History: Cancer Mother Family Medical History: Cancer Additional Family Medical History / Comment(s): . Father History Unknown: Yes Family Medical History: Dementia Medications and Allergies Home Medications Medication Instructions Recorded Confirmed Type Ascorbic Acid [Vitamin C] 1,000 mg PO DAILY 05/22/19 01/08/20 History Bisoprolol-Hctz 10-6.25 mg [Ziac 1 tab PO HS 05/22/19 01/08/20 History 10-6.25 MG] Levothyroxine Sodium [Levoxyl] 25 mcg PO QAM 05/22/19 01/08/20 History Omeprazole 20 mg PO DAILY PRN 05/22/19 01/08/20 History Vit C/E/Zn/Coppr/Lutein/Zeaxan 2 each PO BID 05/22/19 01/08/20 History [Preservision Areds 2 Softgel] Pravastatin Sodium [Pravachol] 10 mg PO DAILY #90 tab 05/29/19 01/08/20 Rx traMADol HCL [Ultram] 50 mg PO Q4HR PRN #42 tab 05/29/19 01/08/20 Rx Lysine [l-Lysine] 1,000 mg PO DAILY 01/07/20 01/08/20 History Allergies Allergy/AdvReac Type Severity Reaction Status Date / Time influenza virus vaccine, Allergy Severe muscle Verified 01/06/20 15:35 specific aches, [influenza virus coughing vacc,specific] Iodinated Contrast Media Allergy Severe lightheadedness,passes Verified 01/06/20 15:35 [Iodinated Contrast Media - out,swelling,hives IV Dye] Penicillins Allergy Severe Swelling, Verified 01/06/20 15:35 Hives acetaminophen [From [place]] Allergy Hallucinati Verified 01/06/20 15:35 ons hydrocodone [From [place]] Allergy Hallucinati Verified 01/06/20 15:35 ons Sulfa (Sulfonamide Allergy swelling, Verified 01/06/20 15:35 Antibiotics) hives Physical Exam Vitals: Vital Signs Temp Pulse Resp BP Pulse Ox 01/08/20 09:00 98.3 F 61 18 139/80 97 - Constitutional General appearance: average body habitus - EENT Eyes: PERRLA - Neurologic Neuro exam of the lower extremities showed normal and symmetrical knee reflexes, absent ankle reflexes bilaterally. Muscle strength in the lower extremities was normal and symmetrical bilaterally. She has tenderness in the lumbar paravertebral musculature on the right side more than the left side. Significant tenderness around the right greater trochanter and mild tenderness around the left greater trochanter. Straight leg raising test negative bilaterally. Internal and external rotation of the right hip joint was mildly painful in the hip. Neurologic: CNII-XII intact - Psychiatric Psychiatric: A&O x's 3, appropriate affect, intact judgment & insight Results Results: Lumbar spine MRI showed moderate canal stenosis at L1-L2 level and severe left neural foraminal stenosis and obliteration of the right neural foramina at the same level. It also showed severe left neural foraminal stenosis at L5-S1 level with moderate stenosis on the right side of the same level. It also showed degenerative disc disease and facet arthropathy. Assessment and Plan Plan: This is a 79-year-old lady with the following diagnoses: Lumbar neuroforaminal stenosis, severe in intensity on the left side at the L5- S1 level and moderate canal stenosis at the L1-L2 level with severe left neural foraminal stenosis at this level. Lumbar DDD Lumbar facet arthropathy Lumbar spondylosis without myelopathy Right greater trochanter bursitis Mild also arthritis in the right hip joint The patient may benefit from getting an epidural steroid injection that can be decided at the time of injection in her to go above her small scar tissue from her previous back surgery or to do caudal epidural with lysis of adhesions. Her symptoms are combination of nerve compression at multiple levels most the L5-S1 level and L1-L2 level. She does have history of IV contrast dye ALLERGY . May need to avoid using it for the procedure. The procedure was explained to the patient and her questions were answered. I thank you for the referral.
== END | disposition home or self-care (01) ==
LOC: PNWHC3 08:52
PROVIDERS: ATTEND Anesthesiology
DX: M48.061 Spinal stenosis, lumbar region without neurogenic claudication (principal); M48.07 Spinal stenosis, lumbosacral region; M47.816 Spondylosis without myelopathy or radiculopathy, lumbar region; M51.36 Other intervertebral disc degeneration, lumbar region; M70.61 Trochanteric bursitis, right hip; M16.11 Unilateral primary osteoarthritis, right hip; M19.90 Unspecified osteoarthritis, unspecified site; K21.9 Gastro-esophageal reflux disease without esophagitis; I10 Essential (primary) hypertension; E78.5 Hyperlipidemia, unspecified; E07.9 Disorder of thyroid, unspecified; H57.89 Other specified disorders of eye and adnexa; Z88.7 Allergy status to serum and vaccine; Z91.041 Radiographic dye allergy status; Z88.0 Allergy status to penicillin; Z88.5 Allergy status to narcotic agent; Z88.2 Allergy status to sulfonamides; Z79.899 Other long term (current) drug therapy; Z79.890 Hormone replacement therapy; Z79.891 Long term (current) use of opiate analgesic
CPT/HCPCS: 99211

== ENCOUNTER → 2020-01-23 | Day surgery (SDC) | payer MEDICARE, OTHER ==
[2020-01-21 13:07] VITALS: BMI 29.8
[~2020-01-23] MED LIST changes: -CLINDAMYCIN 900 MG in DEXTROSE 5% IN WATER 50 ML IVPB ONE; -GABAPENTIN 300 MG CAP PO ONE; +IV FLUID CONTINUATION 600 ML IV ONE; -MELOXICAM 7.5 MG TAB PO ONE; -MIDAZOLAM 2 MG/2 ML VIAL IV PRN; +MIDAZOLAM 2 MG/2 ML VIAL ONE; -ONDANSETRON 4 MG/2 ML VIAL IVP ONE; +SODIUM CHLORIDE 0.9% (PF) 10 ML VIAL ONE; -TRANEXAMIC ACID 1,000 MG in SODIUM CHLORIDE 0.9% 100 ML IVPB ONE; -fentaNYL (PF) 50 MCG/ML 2 ML AMP IV PRN; +fentaNYL (PF) 50 MCG/ML 2 ML AMP ONE; +methylPREDNISolone ACETATE 40 MG/ML 1 ML VIAL ONE
[2020-01-23 06:54] VITALS: RESP 16; TEMP 97.7
--- NOTE | 2020-01-23 08:08 | P.PCN ---
Date of Procedure: 01/23/20 Procedure(s) Performed: PREOP DIAGNOSIS: 1- Lumbar postlaminectomy syndrome. 2--lumbar spinal stenosis. 3-lumbar spondylosis with lumbar facet arthropathy POSTOP DIAGNOSIS: Same as preop diagnosis PROCEDURE: 1-Caudal epidural steroid injection with epidurolysis and epidurogram under fluoroscopic guidance. (Fluoroscopy images available in the radiology Department ) ANESTHESIA: Local with 1% lidocaine 3 ml ,and moderate sedation, with Versed 1 mg and fentanyl 100 g. EBL: Minimal. PROCEDURE INDICATION: The patient with post-laminectomy syndrome with low back pain and radiculopathy radiating down in both legs, here for a caudal epidural steroid injection with epidurolysis. PROCEDURE DESCRIPTION: The patient was seen and identified in the preoperative area. Risks, benefits, complications, and alternatives were discussed with the patient. The patient agreed to proceed with the procedure and signed the consent. IV was started, and vital signs were stable. Patient was taken to the OR and time out was completed. The patient was placed in the prone position on procedure table and a pillow was placed under the abdomen to reduce lumbar lordosis. The lumbosacral area was prepped and draped in the usual sterile fashion. Vital signs were closely monitored during the procedure. lateral view and the anterior-posterior plates of the sacrum were identified with infiltration of the area overlying the sacral hiatus with 1% lidocaine .A 17 gauge RK epidural needle was used to advance through the sacral hiatus into the caudal epidural space.. A Racz catheter was introduced into the epidural space and was advanced towards the L5-S1 interspace under direct fluoroscopic guidance. Multiple passes were made with the catheter for lysis of epidural adhesions. Depo-Medrol 40 mg with 3ml of preservative free Lidocaine 1% and 5 ml of preservative free normal saline was injected slowly. Additional spread was seen to L4 under fluoroscopy. The needle and the catheter were withdrawn intact. note= Omnipaque was not injected because patient had an ALLERGY to IVP dye COMPLICATIONS: None. DISPOSITION / PLANS: The patient was placed in a supine position and transferred to the recovery area in a stable condition for observation and was discharged from the recovery room after meeting discharge criteria. Home discharge instructions given to the patient by the staff. The patient was reexamined prior to discharge. The patient will schedule a follow up in the clinic in 2-4 weeks. note= patient was referred from the Dr. Alexander office to do a right transfo raminal epidural at L5-S1 , but patient reported that she had bilateral symptoms in both lower extremities, and patient already scheduled to have caudal epidural lysis of adhesions, for this reason we will proceed with a caudal lysis ,and I will contact Dr. Alexander office to confirm if he would like us to perform transforaminal epidural at the L5-S1 versus caudal epidural with lysis of adhesions ,for the next procedure
[2020-01-23 08:25] VITALS: BP 133/74; PULSE 59
--- NOTE | 2020-01-23 09:11 | FL ---
EXAMINATION TYPE: FL guided pain mgmt statistic DATE OF EXAM: 01/23/2020 HISTORY: Fluoroscopy time 7 seconds of fluoroscopy provided. IMPRESSION: 1. Fluoroscopy time.
== END | disposition home or self-care (01) ==
LOC: ORPAIN 06:30
PROVIDERS: ATTEND Specialist
DX: M96.1 Postlaminectomy syndrome, not elsewhere classified (principal); M48.061 Spinal stenosis, lumbar region without neurogenic claudication; M47.26 Other spondylosis with radiculopathy, lumbar region; Z91.041 Radiographic dye allergy status; Z88.7 Allergy status to serum and vaccine; Z88.5 Allergy status to narcotic agent; Z88.0 Allergy status to penicillin; Z88.2 Allergy status to sulfonamides
CPT/HCPCS: 62264; J2250; J1030; J3010; C1894; 99152

== ENCOUNTER → 2020-02-17 | Outpatient (CLI) | payer MEDICARE, OTHER ==
[2020-02-17 13:48] VITALS: BP 153/80; PULSE 66; RESP 20; TEMP 98.4
--- NOTE | 2020-02-17 14:11 | P.PN ---
Subjective Progress Note Date: 02/17/20 Lucita is a 79-year-old female presents today for follow-up after having a caudal epidural steroid injection. She was helped a little with her back pain which continues to have pain into both hips. She has pain over the hips bilaterally and into the groin. She feels a standing or walking makes her pain worse sitting makes her pain better. She denies any significant numbness tingling radiating into the lower extremities. She occasionally gets visiting her but does not last very long. She has a history of low back surgery with Dr. Mitchell The past. MRI of the lumbar spine shows disc bulge with extrusion at the L1-L2 levels causing neural foraminal narrowing bilaterally. With the left being more than the right. Objective - Vital Signs Vital signs: Vital Signs Temp 98.4 F 02/17/20 13:42 Pulse 66 02/17/20 13:42 Resp 20 02/17/20 13:42 BP 153/80 02/17/20 13:42 Pulse Ox 97 02/17/20 13:42 Intake & Output 02/16/20 02/17/20 02/17/20 18:59 06:59 18:59 Weight 73.028 kg - Exam General: Awake and alert oriented 3 no distress Respiratory exam: No audible wheezing no accessory muscle usage Cardiovascular exam: regular rate, palpable bilateral pulses, no lower extremity edema Abdominal exam: No distention nontender to palpation Cervical spine: Normal alignment, Spurling's negative, facet loading negative, Rn Assessment strength is 5/5, kidd negative Lumbar spine: Slight scoliosis, decreased lordosis with increased thoracic kyphosis. She leans to the left. She has tenderness to palpation over bilateral trochanteric bursa. She has minimal pain with internal and external rotation of the hips. She does get more pain with internal rotation of the right hip compared to left. Lower extremity strength is 4-5 bilaterally. Hip flexor strength is 3 out of 5 bilaterally. Sacroiliac joints: Flora's test causes pain bilaterally. She is nontender palpation over the SI joints. Neuro exam: Normal sensation in bilateral upper extremities, deep tendon reflexes are 2+ bilateral upper extremities. Normal sensation in bilateral lower extremities. Deep tendon reflexes are 1+ in lower extremities Psych exam: Cooperative, appropriate mood Assessment and Plan Assessment: #1 lumbar radiculopathy #2 lumbar postlaminectomy syndrome #3 possible hip osteoarthritis Plan: I discussed that since her MRI shows significant neuroforaminal stenosis at the L1-L2 levels that we should start with transfemoral epidural steroid injections bilaterally. If she doesn't have improvement that we should consider hip joint injections. She is in agreement like to move forward. She is requesting IV sedation for her procedure
== END | disposition home or self-care (01) ==
LOC: PNWHC3 13:28
PROVIDERS: ATTEND Hospitalist
DX: M96.1 Postlaminectomy syndrome, not elsewhere classified (principal); M54.10 Radiculopathy, site unspecified
CPT/HCPCS: 99211

== ENCOUNTER 2020-03-03 13:03 | Day surgery (SDC) | payer MEDICARE, OTHER ==
[~2020-03-03 13:03] MED LIST changes: -IV FLUID CONTINUATION 600 ML IV ONE; -MIDAZOLAM 2 MG/2 ML VIAL ONE; -SODIUM CHLORIDE 0.9% (PF) 10 ML VIAL ONE; -fentaNYL (PF) 50 MCG/ML 2 ML AMP ONE; -methylPREDNISolone ACETATE 40 MG/ML 1 ML VIAL ONE
[2020-03-03 13:43] VITALS: RESP 16; TEMP 97.3
[2020-03-03] MEDS ORDERED: LIDOCAINE 4% (PF) 5 ML AMP ONE (14:35)
[2020-03-03] MEDS ORDERED: methylPREDNISolone ACETATE 40 MG/ML 1 ML VIAL ONE (14:35)
[2020-03-03] MEDS ORDERED: SODIUM CHLORIDE 0.9% (PF) 10 ML VIAL ONE (14:35)
--- NOTE | 2020-03-03 14:56 | P.PCN ---
Date of Procedure: 03/03/20 Procedure(s) Performed: PREOPERATIVE DIAGNOSIS:1- Lumbar radiculopathy . 2-postlaminectomy pain syndrome lumbar area 3-lumbar foraminal stenosis. 4-osteoarthritis of bilateral hip joints POSTOPERATIVE DIAGNOSIS: Same as preoperative diagnoses. PROCEDURE 1. Transforaminal epidural steroid injection under fluoroscopic guidance at bilateral L1-2 level. (Fluoroscopy images stored on file in the radiology Department ) ANESTHESIA: Local with 1% lidocaine 4 ml. EBL: Minimal PROCEDURE INDICATION: The patient with low back pain and radiculopathy symptoms unresponsive to conservative treatment. PROCEDURE DESCRIPTION / TECHNIQUE: The patient was seen and identified in the preoperative area. Risks, benefits, complications, and alternatives were discussed with the patient. The patient agreed to proceed with the procedure and signed the consent. IV was started, and vital signs were stable. Patient was taken to the OR and time out was completed. The patient was placed in the prone position on procedure table and a pillow was placed under the a bdomen to reduce lumbar lordosis. The lumbosacral area was prepped and draped in the usual sterile fashion. Critical pause was taken. Vital signs were closely monitored during the procedure. Conscious sedation was used during the procedure to decrease patient s anxiety. Using oblique fluoroscopy, the chin of the ``Jr dog at L1-2 level was identified, and the skin and deeper tissues just below was localized with 1% lidocaine. Subsequently, a 22-gauge 3.5-inch spinal needle was advanced under a tunneled view fluoroscopic guidance just underneath the chin of the ``Jr dog at the right L1-2 Under lateral fluoroscopy, the needle was then advanced to the posterior border of the interforaminal space. After negative aspiration of CSF and blood ,Subsequently, 3 mL of block solution containing 20 mg Depo- Medrol and 2 mL of 0.9% normal saline PF was injected. Needle was removed and the same procedure was repeated at the left L1-2 level . At the end of the procedure, skin was cleansed, and bandages were applied. COMPLICATIONS:none DISPOSITION / PLANS: The patient was placed in a supine position and transferred to the recovery area in a stable condition for observation. There was no evidence of lower extremity motor or sensory deficit after the procedure. Patient was discharged from the recovery room after meeting discharge criteria. Home discharge instructions were given to the patient by the staff. The patient was reexamined prior to discharge. note= Isovue was not used because patient had ALLERGY to IVP dye
--- NOTE | 2020-03-03 15:12 | FL ---
EXAMINATION TYPE: FL guided pain mgmt statistic DATE OF EXAM: 03/03/2020 HISTORY: Fluoroscopy time 46 seconds of fluoroscopy provided. IMPRESSION: 1. Fluoroscopy time.
[2020-03-03 15:15] VITALS: BP 141/71; PULSE 65
== END 2020-03-03 15:26 | disposition home or self-care (01) ==
LOC: ORPAIN 13:03
PROVIDERS: ATTEND Specialist
DX: M54.16 Radiculopathy, lumbar region (principal); M96.1 Postlaminectomy syndrome, not elsewhere classified; M48.061 Spinal stenosis, lumbar region without neurogenic claudication; M16.0 Bilateral primary osteoarthritis of hip; I10 Essential (primary) hypertension; Z88.7 Allergy status to serum and vaccine; Z91.041 Radiographic dye allergy status; Z88.0 Allergy status to penicillin; Z88.2 Allergy status to sulfonamides
CPT/HCPCS: 64483; J2001; J1030

== ENCOUNTER → 2020-03-25 | Outpatient (CLI) | payer MEDICARE, OTHER ==
[2020-03-25 10:42] VITALS: BP 148/79; PULSE 69; RESP 20; TEMP 98.1
--- NOTE | 2020-03-25 10:47 | P.PAINPG ---
Subjective Progress Note Date: 03/25/20 Lucita is a 79-year-old female presents today for follow-up after having bilateral L1-L2 transforaminal steroid injections In the past she had a caudal epidural steroid injection which helped a little with her back pain which continues to have pain into both hips. She notes that recent injections were very helpful. They have brought her pain down from 50% and she is still having some relief. She does feel some of her pain coming back but not much is back at the moment. In general her pain is o melissa her hips bilaterally into the groin made worse with standing and walking while sitting makes her pain better. No significant numbness or tingling in the lower extremities. Of note she has had a history of low back surgery with Dr. Mitchell MRI of the lumbar spine shows disc bulge with extrusion at the L1-L2 levels causing neural foraminal narrowing bilaterally. With the left being more than the right. Review of systems is negative for chest pain, shortness of breath, new onset weakness, numbness/tingling, abdominal pain, malaise, fever, night sweats, chills, homicidal or suicidal ideation, or bowel or bladder incontinence. Objective - Exam General: Awake and alert oriented 3 no distress Respiratory exam: No audible wheezing no accessory muscle usage Cardiovascular exam: regular rate, palpable bilateral pulses, no lower extremity edema Abdominal exam: No distention nontender to palpation Cervical spine: Normal alignment, Spurling's negative, facet loading negative, Medical Oncologist strength is 5/5, kidd negative Lumbar spine: Slight scoliosis, decreased lordosis with increased thoracic kyphosis. She leans to the left. She has tenderness to palpation over bilateral trochanteric bursa. She has minimal pain with internal and external rotation of the hips. She does get more pain with internal rotation of the right hip compared to left. Lower extremity strength is 4-5 bilaterally. Hip flexor strength is 4 out of 5 bilaterally. Sacroiliac joints: Flora's test causes pain bilaterally. She is nontender palpation over the SI joints. Neuro exam: Normal sensation in bilateral upper extremities, deep tendon reflexes are 2+ bilateral upper extremities. Normal sensation in bilateral lower extremities. Deep tendon reflexes are 1+ in lower extremities Psych exam: Cooperative, appropriate mood Assessment and Plan Assessment: #1 lumbar radiculopathy #2 lumbar postlaminectomy syndrome #3 possible hip osteoarthritis Plan: We will repeat her L1-L2 transforaminal epidural steroid injections as needed. At this time I have scheduled her next for 3 months. We had a long discussion about the use of steroid injections especially in her age group and increased risk of osteoporosis. She understands this. Would like sedation on her next procedure. Objective - Vital Signs Vital signs: Intake & Output 03/23/20 03/24/20 03/24/20 18:59 06:59 18:59 Weight 70.76 kg PQRS Measure Charge Sheet Measure #226: Tobacco Use: Screen & Cessation Intervention: Pt not a tobacco user Measure #47: Advance Care Plan: Advance care planning discussed & documented, pt chose/unable to give Measure #412: Opioid Treatment Agreement: No documentation of signed opioid treatment agreement Measure #408: Opioid Therapy Follow-up Evaluation: Patient had NO f/u eval minimum every 3 months during opioid therapy Measure #128: Body Mass Index (BMI) Screening & Follow-up: BMI documented within normal parameters Measure #131: Pain Assessment & Follow-up: Pain positive & plan documented, Follow-up scheduled PQRS Narrative: Smoking Status Never smoker Pain Intensity [Lower Back] 6 Hx Alcohol Use (MH) No Home Medications: Ambulatory Orders Ascorbic Acid [Vitamin C] 1,000 mg PO DAILY 05/22/19 Bisoprolol-Hctz 10-6.25 mg [Ziac 10-6.25 MG] 1 tab PO HS 05/22/19 Levothyroxine Sodium [Levoxyl] 25 mcg PO QAM 05/22/19 Omeprazole 20 mg PO QAM PRN 05/22/19 Vit C/E/Zn/Coppr/Lutein/Zeaxan [Preservision Areds 2 Softgel] 2 each PO BID 05/22/19 Lysine [l-Lysine] 1,000 mg PO DAILY 01/07/20 Pravastatin Sodium [Pravachol] 10 mg PO QAM 03/02/20 Controlled Substance Measures - Controlled Substance Measures Is patient prescribed a controlled substance at discharge?: No
== END | disposition home or self-care (01) ==
LOC: PNWHC3 10:27
PROVIDERS: ATTEND Anesthesiology
DX: M96.1 Postlaminectomy syndrome, not elsewhere classified (principal); M54.16 Radiculopathy, lumbar region; Z79.890 Hormone replacement therapy; Z79.899 Other long term (current) drug therapy
CPT/HCPCS: 99211

== ENCOUNTER 2020-06-23 06:54 | Day surgery (SDC) | payer MEDICARE, OTHER ==
[2020-06-23 07:14] VITALS: RESP 16; TEMP 96.8
[2020-06-23] MEDS ORDERED: LIDOCAINE 1% (10MG/ML) FOR IV START INTRADERMA ONE (07:25)
[2020-06-23] MEDS ORDERED: fentaNYL (PF) 50 MCG/ML 2 ML AMP ONE (07:37)
[2020-06-23] MEDS ORDERED: methylPREDNISolone ACETATE 40 MG/ML 1 ML VIAL ONE (07:37)
[2020-06-23] MEDS ORDERED: MIDAZOLAM 2 MG/2 ML VIAL ONE (07:37)
--- NOTE | 2020-06-23 07:55 | P.PCN ---
Date of Procedure: 06/23/20 Procedure(s) Performed: PREOPERATIVE DIAGNOSIS: 1- Lumbar radiculopathy . 2-postlaminectomy pain syndrome lumbar area 3-lumbar foraminal stenosis. 4-osteoarthritis of bilateral hip joints POSTOPERATIVE DIAGNOSIS: Same as preoperative diagnoses. PROCEDURE 1. Transforaminal epidural steroid injection under fluoroscopic guidance at bilateral L1-2 level. (Fluoroscopy images stored on file in the radiology Department ) ANESTHESIA: Moderate sedation with Versed 1 mg and fentanyl 50 g ,and Local with 1% lidocaine 4 ml. EBL: Minimal PROCEDURE INDICATION: The patient with low back pain and radiculopathy symptoms unresponsive to conservative treatment. PROCEDURE DESCRIPTION / TECHNIQUE: The patient was seen and identified in the preoperative area. Risks, benefits, complications, and alternatives were discussed with the patient. The patient agreed to proceed with the procedure and signed the consent. IV was started, and vital signs were stable. Patient was taken to the OR and time out was completed. The patient was placed in the prone position on procedure table and a pillow was placed under the abdomen to reduce lumbar lordosis. The lumbosacral area was prepped and draped in the usual sterile fashion. Critical pause was taken. Vital signs were closely monitored during the procedure. Conscious sedation was used during the procedure to decrease patient s anxiety. Using oblique fluoroscopy, the chin of the `Kty dog at L1-2 level was identified, and the skin and deeper tissues just below was localized with 1% lidocaine. Subsequently, a 22-gauge 3.5-inch spinal needle was advanced under a tunneled view fluoroscopic guidance just underneath the chin of the `Kty dog at the right L1-2 Under lateral fluoroscopy, the needle was then advanced to the posterior border of the interforaminal space. After negative aspiration of CSF and blood ,Subsequently, 3 mL of block solution containing 30 mg Depo- Medrol and 2 mL of 0.9% normal saline PF was injected. Needle was removed and the same procedure was repeated at the left L1-2 level . At the end of the procedure, skin was cleansed, and bandages were applied. COMPLICATIONS:none DISPOSITION / PLANS: The patient was placed in a supine position and transferred to the recovery area in a stable condition for observation. There was no evidence of lower extremity motor or sensory deficit after the procedure. Patient was discharged from the recovery room after meeting discharge criteria. Home discharge instructions were given to the patient by the staff. The patient was reexamined prior to discharge. note= Isovue was not used because patient had ALLERGY to IVP dye
[2020-06-23 08:19] VITALS: BP 137/77; PULSE 61
[2020-06-23] MEDS ORDERED: IV FLUID CONTINUATION 1,000 ML IV ONE (08:20)
--- NOTE | 2020-06-23 09:38 | FL ---
Fluoroscopy HISTORY: Pain 5 seconds fluoroscopy time supplied to the referring clinician. 2 intraoperative C-arm images docume nt the procedure. See dictated report from anesthesia.
== END 2020-06-23 08:32 | disposition home or self-care (01) ==
LOC: ORPAIN 06:54
PROVIDERS: ATTEND Specialist
DX: M48.061 Spinal stenosis, lumbar region without neurogenic claudication (principal); M54.16 Radiculopathy, lumbar region; M16.0 Bilateral primary osteoarthritis of hip; Z88.7 Allergy status to serum and vaccine
CPT/HCPCS: 64483; J2250; J1030; J3010

== ENCOUNTER → 2020-07-06 | Outpatient (CLI) | payer MEDICARE, OTHER ==
[2020-07-06 14:00] VITALS: BP 130/77; PULSE 57; RESP 16; TEMP 97.7
--- NOTE | 2020-07-06 15:08 | P.PAINPG ---
Subjective Progress Note Date: 07/06/20 Principal diagnosis: Lumbar back pain Mrs. Gamboa is a 80-year-old pleasant female had a history of chronic low back pain for many years. Patient had bilateral L1-L2 transforaminal epidural 3. With good pain relief with the previous 2 transforaminal epidurals, the last transforaminal epidural help marginal pain relief. Today she is complaining her pain is 6 out of 10 in severity. She describes her pain is aching, throbbing type. Some days worse than the other. She denied any red flag symptoms related to pain at this time. Activities sometimes making her pain worse. She denied any problems with the sleep. 13 Review of systems negative except as mentioned in the history of present illness. Objective - Vital Signs Vital signs: Vital Signs Temp 97.7 F 07/06/20 13:58 Pulse 57 L 07/06/20 13:58 Resp 16 07/06/20 13:58 BP 130/77 07/06/20 13:58 Pulse Ox 96 07/06/20 13:58 - Exam General: well-developed, well-nourished, no acute distress. HEENT: Normocephalic, atraumatic. Neck: supple, trachea midline CVS: Regular rate and rhythm Pulmonary : Not in labored breathing. Neurologic: No noticeable focal neurological deficits. Psychiatric: Appropriate mood and affect. Musculoskeletal: Upper extremity : Normal strength and range of motion, and sensation grossly intact.. Lower extremity: Normal strength and decreased range of motion secondary to pain. Sensation grossly intact Noticeable leg length discrepancy - on left side lower extremity. Lumbar spine range of motion: Decreased in flexion, extension, and lateral bending secondary to pain Lumbar paraspinal muscle tenderness: Positive Lumbar facet loading test: Positive Strait leg raising test: Not done secondary to pain Sacroiliac joint tenderness: Negative Lumbar spine trigger points : Positive. Assessment and Plan Assessment: Lumbar spondylosis without myelopathy Lumbar spine stenosis, and lumbar scoliosis Myofascial pain syndrome, and chronic pain syndrome Plan: 1. Diagnoses, prognoses, and multiple treatment options including but not limited to physical therapy, interventional therapies, adjunct medical therapies, and surgical options were discussed with the patient and all questions were answered to the patients satisfaction. 2. Treatment plan agreement: Patient was discussed regarding the medication side effects, and complications associated medications. 3. The patient was counseled on importance of regular exercise in controlling chronic pain as well as in terms of overall well-being. Patient counseled regarding the importance of regular exercise, and minimizing the intake of carbohydrates, and process foods which may help in decreasing the inflammation, and helps overall well-being. 4. Consultations: Continue physical therapy exercises at home 5. Investigations: MAPS- appropriate , and urine drug test- not done. 6. Diagnostic studies: None. 7. Interventional procedures: None 8. Medications: None 9. Morphine milligram equivalent (MME) doses: 0 from the pain clinic. 10. Durable Medical Equipment (DME) : TENS units. 11. Disposition: Scheduled for follow-up as needed I have spent 22 minutes with this patient. Including but not limited to: [id number] time, on physical examination, electronic medical record review, counseling, and documentation The QRS measure charge sheet done in separate paper note. Time with Patient: Less than 30 PQRS Measure Charge Sheet PQRS Narrative: Smoking Status Never smoker Blood Pressure 130/77 Pain Intensity [Lower Back] 4 Scale Used Numeric (1 - 10) Hx Alcohol Use (MH) No Home Medications: Ambulatory Orders Ascorbic Acid [Vitamin C] 1,000 mg PO DAILY 05/22/19 Bisoprolol-Hctz 10-6.25 mg [Ziac 10-6.25 MG] 1 tab PO HS 05/22/19 Levothyroxine Sodium [Levoxyl] 25 mcg PO QAM 05/22/19 Omeprazole 20 mg PO QAM 05/22/19 Vit C/E/Zn/Coppr/Lutein/Zeaxan [Preservision Areds 2 Softgel] 1 each PO TID 05/22/19 Lysine [l-Lysine] 1,000 mg PO DAILY 01/07/20 Pravastatin Sodium [Pravachol] 10 mg PO QAM 03/02/20 Acetaminophen Tab [Tylenol Tab] 1,000 mg PO HS PRN 07/02/20 [place] Xl 3 cap PO DAILY 07/02/20 Controlled Substance Measures - Controlled Substance Measures Is patient prescribed a controlled substance at discharge?: No
== END ==
LOC: PNWHC3 13:47
DX: M47.816 Spondylosis without myelopathy or radiculopathy, lumbar region (principal); M48.061 Spinal stenosis, lumbar region without neurogenic claudication; M41.86 Other forms of scoliosis, lumbar region; M79.18 Myalgia, other site; G89.4 Chronic pain syndrome
CPT/HCPCS: 99211

== ENCOUNTER → 2020-09-08 | Outpatient (CLI) | payer MEDICARE, OTHER ==
--- NOTE | 2020-09-08 15:52 | XR ---
Bilateral knees HISTORY: Bilateral pain, trauma 2 views of each knee submitted. 4 images. Joint space loss is present in the medial compartment bilaterally, lateral compartment greater on the left, there is marginal spurring present laterally in the left, at the patellofemoral joints. No maryse dent joint effusion. Bone mineralization is reduced. Alignment maintained. IMPRESSION: No fracture or dislocation. There is underlying arthropathy change.
== END | disposition home or self-care (01) ==
LOC: RADXRMAIN 12:54
PROVIDERS: ATTEND Family Medicine
DX: M25.561 Pain in right knee (principal); M25.562 Pain in left knee

== ENCOUNTER → 2020-10-13 | Outpatient (CLI) | payer MEDICARE, OTHER ==
--- NOTE | 2020-10-13 12:31 | MR ---
EXAMINATION TYPE: MR lumbar spine wo/w con DATE OF EXAM: 10/13/2020 COMPARISON: 11/12/2019 HISTORY: Spinal stenosis, difficulty walking TECHNIQUE: Multiplanar, multisequence images of the lumbar spine were acquired utilizing [address] gadolinium contrast. L1-L2: There is a disc bulge with bilateral facet arthropathy resulting in severe right and moderate left neural foraminal narrowing and moderate central canal stenosis. L2-L3: There is a disc bulge with bilateral facet arthropathy resulting in severe right and mild left neural foraminal narrowing and mild central canal stenosis. L3-L4: There is a disc bulge with bilateral facet arthropathy resulting in severe right and mild left neural foraminal narrowing and mild central canal stenosis. L4-L5: There is a disc bulge with bilateral facet arthropathy resulting in moderate to severe bilater al neural foraminal narrowing and mild central canal stenosis. L5-S1: There is a disc bulge with bilateral facet arthropathy resulting in severe left and moderate r ight neural foraminal narrowing and mild central canal stenosis. Annular tear is present. Levoscoliosis is present. Vertebral body heights are preserved. There is mild anterolisthesis of L5 o n S1 measuring 0.8 cm. No definite abnormal enhancement is seen. IMPRESSION: 1. Levoscoliosis with mild anterolisthesis of L5 on S1. 2. Multilevel disc disease and osteoarthritic changes of the lumbar spine.
== END | disposition home or self-care (01) ==
LOC: RADMRIMAIN 10:45
PROVIDERS: ATTEND Family Medicine
DX: M51.36 Other intervertebral disc degeneration, lumbar region (principal); M47.816 Spondylosis without myelopathy or radiculopathy, lumbar region; M48.061 Spinal stenosis, lumbar region without neurogenic claudication
CPT/HCPCS: 72158; A9585

== ENCOUNTER → 2020-11-24 | Outpatient (CLI) | payer MEDICARE, OTHER ==
--- NOTE | 2020-11-24 13:14 | XR ---
EXAM TYPE: LUMBAR SPINE X RAY SERIES COMPARISON: 11/12/2019 HISTORY: Low back pain TECHNIQUE: 7 views are submitted during flexion-extension lateral views. FINDINGS: Scoliosis with severe multilevel degenerative disc disease. There is anterolisthesis L5 on S1 with mu ltilevel facet arthropathy and foraminal encroachment suspected. SI joint arthropathy noted. Vascular calcification seen. Flexion and extension views demonstrate slight reduction of the anterolisthesis on extension but slight increase on flexion. IMPRESSION: 1. Scoliosis with severe multilevel degenerative disc disease and grade 1\grade 2 anterolisthesis of L5 on S1. Multilevel foraminal encroachment.
--- NOTE | 2020-11-24 13:17 | CT ---
EXAMINATION TYPE: CT lumbar spine wo con DATE OF EXAM: 11/24/2020 12:50 PM COMPARISON: CT lumbar spine June 28, 2019. MRI lumbar spine October 13 2020 HISTORY: chronic low back pain with radiation to right leg CT DLP: 1021 mGycm Automated exposure control for dose reduction was used. Unenhanced CT of the lumbar spine was performed. Bone and soft tissue window settings are submitted as well as coronal and sagittal reconstructions. There are 5 lumbar type vertebra redemonstrated. Persistent levoconvex scoliosis centered at L2-L3 le dc. Persistent but stable severe grade 1 anterolisthesis L5 on S1. Persistent multilevel moderate to severe disc space narrowing and spurring with multilevel vacuum disc phenomenon L1-L2 through L5-S1 levels greatest right L2-L3 and L3-L4 along with left L4-L5 aspects. Axial images show T12-L1 level to appear within normal limits. Axial images at L1-L2 level show moderate broad disc bulge with right paracentral disc protrusion com ponent effacing the anterior thecal sac and mild to moderate right greater than left facet arthropath y and ligamentum flavum hypertrophy. Moderate right greater than left bilateral neural foraminal narr owing is present. Axial images at L2-L3 level show posterior spur disc complex and moderate facet arthropathy and ligam entum flavum hypertrophy. Effacement of the anterior and posterior lateral thecal sac. Mild left and severe right-sided neural foraminal narrowing redemonstrated. Axial images at L3-L4 levels show moderate to advanced right greater than left facet arthropathy. Pos terior spur disc complex effaces the anterior thecal sac. Severe right-sided neural foraminal narrowi ng redemonstrated. Axial images at L4-L5 level show left-sided laminectomy defect. Spinal canal is preserved. Advanced f acet arthropathy identified. Mild to moderate bilateral neural foraminal narrowing is seen. Mild broa d-based left paracentral disc protrusion noted. Axial images at L5-S1 show moderate to advanced facet arthropathy. Spondylolisthesis is present. Siri re bilateral neural foraminal narrowing redemonstrated greater on the left. There is partial visualization of 4.6 cm thin-walled cyst or cystic lesion left pelvis on the last ax ial images. Correlate clinically. Consider pelvic ultrasound to further evaluate. Some diverticula off the left and sigmoid colon are identified. IMPRESSION: Scoliosis. Stable lumbosacral spondylolisthesis. Successful lower lumbar spine posterior decompression. Multilevel fairly advanced degenerative changes redemonstrated. Other findings as note d above.
== END | disposition home or self-care (01) ==
LOC: RADCTMAIN 12:26
PROVIDERS: ATTEND Neurological Surgery
DX: M48.061 Spinal stenosis, lumbar region without neurogenic claudication (principal); M51.26 Other intervertebral disc displacement, lumbar region; M43.17 Spondylolisthesis, lumbosacral region; M47.816 Spondylosis without myelopathy or radiculopathy, lumbar region; M99.73 Connective tissue and disc stenosis of intervertebral foramina of lumbar region; M41.9 Scoliosis, unspecified
CPT/HCPCS: 72114; 72131

== ENCOUNTER → 2021-02-11 | Outpatient (CLI) | payer MEDICARE, OTHER ==
[2021-02-11 13:37] LABS: Basophils % (A) 1 %; Eosinophils # (A) 0.1 k/uL (0-0.7); Eosinophils % (A) 3 %; HCT 40.3 % (34.0-46.0); HGB 13.6 gm/dL (11.4-16.0); Lymphocytes # (A) 1.4 k/uL (1.0-4.8); Lymphocytes % (A) 31 %; MCH 31.7 pg (25.0-35.0); MCHC 33.7 g/dL (31.0-37.0); MCV 94.2 fL (80.0-100.0); Mean Platelet Volume 7.2; Monocytes # (A) 0.3 k/uL (0-1.0); Monocytes % (A) 7 %; Neutrophils # (A) 2.4 k/uL (1.3-7.7); Neutrophils % (A) 55 %; Platelet Count 206 k/uL (150-450); RBC 4.27 m/uL (3.80-5.40); RDW 13.9 % (11.5-15.5); WBC 4.5 k/uL (3.8-10.6)
[2021-02-11 13:47] LABS: ALT 20 U/L (4-34); AST 23 U/L (14-36); African American GFR (CKD) >90 (>60 ml/min/1.73 sqM); Albumin 4.6 g/dL (3.5-5.0); Alkaline Phosphatase 70 U/L (38-126); Anion Gap 9 mmol/L; Blood Urea Nitrogen 20 mg/dL (7-17); Calcium 9.6 mg/dL (8.4-10.2); Carbon Dioxide 28 mmol/L (22-30); Chloride 102 mmol/L (98-107); Glucose 100 mg/dL (74-99); Non-African American GFR(CKD) 81 (>60 ml/min/1.73 sqM); Sodium 139 mmol/L (137-145); Total Bilirubin 0.6 mg/dL (0.2-1.3); Total Protein 7.4 g/dL (6.3-8.2)
[2021-02-11 14:06] LABS: Prothrombin Time 10.3 sec (9.0-12.0)
--- NOTE | 2021-02-11 14:12 | XR ---
EXAMINATION TYPE: XR chest 2V DATE OF EXAM: 02/11/2021 COMPARISON: Chest x-ray 06/24/2014 HISTORY: Preop TECHNIQUE: Frontal and lateral views of the chest are obtained. FINDINGS: There is no focal air space opacity, pleural effusion, or pneumothorax seen. The cardiac silhouette size is within normal limits. The osseous structures are showing bilateral shoulder arth roplasties. There is a thoracic scoliotic curvature. Aorta is dense.. IMPRESSION: No acute cardiopulmonary process.
== END | disposition home or self-care (01) ==
LOC: RADXRMAIN 12:12
PROVIDERS: ATTEND Family Medicine
DX: Z01.818 Encounter for other preprocedural examination (principal)
CPT/HCPCS: 71046; 80053; 85025; 85610; 85730; 86850; 86900; 86901; 87070; 93005

== ENCOUNTER 2022-01-14 14:18 | Emergency (ER) | payer MEDICARE, OTHER ==
[2022-01-14 15:25] VITALS: TEMP 98.2
--- NOTE | 2022-01-14 16:28 | ED ---
General Adult HPI - General Chief complaint: Head Injury Stated complaint: Fall-head injury Time Seen by Provider: 01/14/22 15:27 Source: patient Mode of arrival: ambulatory - History of Present Illness Initial comments: Dictation was produced using [employer] dictation software. please excuse any grammatical, word or spelling errors. Chief Complaint: 81-year-old female presents emergency Department with facial pain, right wrist pain and left leg pain History of Present Illness: Is 81-year-old female she presents to the emergency department after falling. Patient states she was walking out the back door when she tripped. She tried to catch herself with her right upper extremity. She also reports hitting her leg on the way down. She smacked her face on the floor. Patient states she had some epistaxis that resolved on its own. Even occurred several hours prior to arrival. Patient has not taken any correlation medications. Denies any loss of consciousness. She has no neck pain. The ROS documented in this emergency department record has been reviewed and confirmed by me. Those systems with pertinent positive or negative responses have been documented in the HPI. All other systems are other negative and/or noncontributory. PHYSICAL EXAM: General Impression: Alert and oriented x3, not in acute distress HEENT: Ecchymoses and swelling over the bridge of the nose, small abrasion over the forehead, extra-ocular movements intact, pupils equal and reactive to light bilaterally, mucous membranes moist. Cardiovascular: Heart regular rate and rhythm Chest: Able to complete full sentences, no retractions, no tachypnea Abdomen: abdomen soft, non-tender, non-distended, no organomegaly Musculoskeletal: Pulses present and equal in all extremities, no peripheral edema, palpatory tenderness over the right wrist, no tenderness over the scaphoid, there is some palpatory tenderness over the left lateral distal fibula Motor: no focal deficits noted Neurological: CN II-XII grossly intact, no focal motor or sensory deficits noted Skin: Intact with no visualized rashes Psych: Normal affect and mood ED course: 81-year-old female presents emergency department after fall. She has multiple pain complaints. Patient does not take any anticoagulation medications. Vital signs upon arrival are within acceptable limits. Patient is well-appearing at bedside without any gross deformities that would suggest significant traumatic injury. Katherin x-ray shows no acute processes. Wrist x-ray shows no acute processes. Facial CT shows nasal bone fracture. Computed tomography scan of the head and C-spine shows no acute processes. Patient observed in the emergency department for 3 hours. Reevaluate bedside at 5:30 PM found with stable medical condition. Patient be discharged. - Related Data Home Medications Medication Instructions Recorded Confirmed Ascorbic Acid [Vitamin C] 1,000 mg PO DAILY 05/22/19 07/02/20 Bisoprolol-Hctz 10-6.25 mg [Ziac 1 tab PO HS 05/22/19 07/02/20 10-6.25 MG] Levothyroxine Sodium [Levoxyl] 25 mcg PO QAM 05/22/19 07/02/20 Omeprazole 20 mg PO QAM 05/22/19 07/02/20 Vit C/E/Zn/Coppr/Lutein/Zeaxan 1 each PO TID 05/22/19 07/02/20 [Preservision Areds 2 Softgel] Lysine [l-Lysine] 1,000 mg PO DAILY 01/07/20 07/02/20 Pravastatin Sodium [Pravachol] 10 mg PO QAM 03/02/20 07/02/20 Acetaminophen Tab [Tylenol Tab] 1,000 mg PO HS PRN 07/02/20 07/02/20 [place] Xl 3 cap PO DAILY 07/02/20 07/02/20 Allergies Allergy/AdvReac Type Severity Reaction Status Date / Time influenza virus vaccine, Allergy Severe muscle Verified 01/14/22 15:25 specific aches, [influenza virus coughing vacc,specific] Iodinated Contrast Media Allergy Severe lightheadedness,passes Verified 01/14/22 15:25 [Iodinated Contrast Media - out,swelling,hives IV Dye] Penicillins Allergy Severe Swelling, Verified 01/14/22 15:25 Hives acetaminophen [From [place]] Allergy Hallucinati Verified 01/14/22 15:25 ons hydrocodone [From [place]] Allergy Hallucinati Verified 01/14/22 15:25 ons Sulfa (Sulfonamide Allergy swelling, Verified 01/14/22 15:25 Antibiotics) hives tramadol Allergy Hallucinati Verified 01/14/22 15:25 ons Review of Systems ROS Statement: Those systems with pertinent positive or pertinent negative responses have been documented in the HPI. ROS Other: All systems not noted in ROS Statement are negative. Past Medical History Past Medical History: Eye Disorder, GERD/Reflux, Hyperlipidemia, Hypertension, Osteoarthritis (OA), Thyroid Disorder Additional Past Medical History / Comment(s): CHRONIC COUGH FROM GERD. Hx ringing pao ears, SCIATICA, hx migraines years ago, occ. palpitations, hiatal hernia, left eye macular degeneration, left ovarian cyst History of Any Multi-Drug Resistant Organisms: None Reported Past Surgical History: Back Surgery, Cholecystectomy, Heart Catheterization, Joint Replacement, Orthopedic Surgery Additional Past Surgical History / Comment(s): BACK SURGERY for DECOMPRESSION. RT WRIST CARPAL TUNNEL, PAO CATARACTS. Left shoulder reverse total shoulder, rt shoulder replacement, left eye surgery for macular hole Past Anesthesia/Blood Transfusion Reactions: No Reported Reaction Past Psychological History: No Psychological Hx Reported Smoking Status: Never smoker Past Alcohol Use History: None Reported Past Drug Use History: None Reported - Past Family History Brother(s) Family Medical History: Cancer Mother Family Medical History: Cancer Additional Family Medical History / Comment(s): . Father History Unknown: Yes Family Medical History: Dementia Course Vital Signs 01/14/22 15:20 Temperature 98.2 F Pulse Rate 66 Respiratory 18 Rate Blood Pressure 139/77 Disposition Clinical Impression: Nasal bone fracture, Wrist sprain, Contusion of leg Disposition: HOME SELF-CARE Condition: Good Instructions (If sedation given, give patient instructions): Fall Prevention for Older Adults (ED) Is patient prescribed a controlled substance at d/c from ED?: No Referrals: Hari Huber Jr, DO [Primary Care Provider] - 1-2 days Time of Disposition: 17:32
--- NOTE | 2022-01-14 17:14 | CT ---
EXAMINATION TYPE: CT brain abel muir DATE OF EXAM: 01/14/2022 COMPARISON: None HISTORY: fall CT DLP: combined DLP 1124.[address] of the brain was performed. The ventricles, basal cisterns and sulci overlying the cerebral convexities demonstrate mild enlargem ent. There is no evidence for intracranial hemorrhage or sulcal effacement. There is decreased attenuatio n about the periventricular white matter and deep white matter of both cerebral hemispheres, compatib le with chronic small vessel ischemia. No mass effects are seen. If symptoms persist consider MRI. Osseous calvarium is intact. Suspect nondepressed nasal bone fracture. IMPRESSION: 1. Age related atrophic and chronic small vessel ischemic change without acute intracranial process seen at this time. CT Cervical Spine: Unenhanced CT of the cervical spine was performed with bone and soft tissue window settings submitted . Coronal and sagittal reconstruction is obtained. There is normal alignment and prevertebral soft tissues. No evidence for acute cervical fracture . Scattered degenerative disc disease and spondylosis. Biapical scarring. IMPRESSION: 1. No evidence for acute fracture or subluxation of the cervical spine.
--- NOTE | 2022-01-14 17:15 | CT ---
EXAMINATION TYPE: CT facial bones wo con DATE OF EXAM: 01/14/2022 COMPARISON: No HISTORY: fall, swelling and bruising around nasal area CT DLP: combined DLP 1124.[address] of the facial bones was performed in the axial and coronal planes. Bone and soft tissu e window settings are submitted. Displaced left nasal bone fracture with displacement of less than 1 mm. No additional facial bone fra ctures are seen. Surrounding soft tissue swelling about the nasion. The globes are intact. Paranasal sinuses are well-aerated. IMPRESSION: 1. Nasal bone fracture.
--- NOTE | 2022-01-14 17:24 | XR ---
EXAMINATION TYPE: XR wrist complete RT DATE OF EXAM: 01/14/2022 CLINICAL HISTORY: pain TECHNIQUE: Frontal, lateral and oblique images of the right wrist are obtained. A navicular views al so obtained. COMPARISON: None. FINDINGS: There is no acute fracture/dislocation evident. Moderate radiocarpal joint space narrowing. Well-amaury icated ossific density adjacent to the ulnar styloid process is chronic in nature. The overlying soft tissue appears unremarkable. IMPRESSION: There is no acute fracture or dislocation seen. ICD 10 NO FRACTURE, INITIAL EVALUATION
--- NOTE | 2022-01-14 17:24 | XR ---
EXAMINATION TYPE: XR tibia fibula LT DATE OF EXAM: 01/14/2022 CLINICAL HISTORY: pain TECHNIQUE: AP and lateral images of the left tibia and fibula are obtained. COMPARISON: None. FINDINGS: There is no acute fracture/dislocation evident. The joint spaces appear within normal sweet its. The overlying soft tissue appears unremarkable. IMPRESSION: There is no acute fracture or dislocation seen. ICD 10 NO FRACTURE, INITIAL EVALUATION
[2022-01-14 17:57] VITALS: BP 142/85; PULSE 70; RESP 20
== END 2022-01-14 17:57 | disposition home or self-care (01) ==
LOC: EC 14:18
DX: S02.2XXA Fracture of nasal bones, initial encounter for closed fracture (principal); S80.12XA Contusion of left lower leg, initial encounter; M25.531 Pain in right wrist; K21.9 Gastro-esophageal reflux disease without esophagitis; E78.5 Hyperlipidemia, unspecified; I10 Essential (primary) hypertension; M19.90 Unspecified osteoarthritis, unspecified site; Z88.7 Allergy status to serum and vaccine; Z88.0 Allergy status to penicillin; Z88.2 Allergy status to sulfonamides; Z91.041 Radiographic dye allergy status; Z88.6 Allergy status to analgesic agent; Z88.5 Allergy status to narcotic agent; Z79.890 Hormone replacement therapy; Z79.899 Other long term (current) drug therapy; W01.0XXA Fall on same level from slipping, tripping and stumbling without subsequent striking against object, initial encounter
CPT/HCPCS: 70450; 70486; 72125; 99284

== ENCOUNTER → 2022-09-01 | Outpatient (CLI) | payer MEDICARE ==
--- NOTE | 2022-09-01 13:29 | CT ---
EXAMINATION TYPE: CT lumbar spine wo con DATE OF EXAM: 09/01/2022 1:12 PM COMPARISON: CT lumbar spine November 24, 2020 and MRI lumbar spine October 13, 2020 HISTORY: Spinal stenosis, lumbar region CT DLP: 758.9 mGycm Automated exposure control for dose reduction was used. Unenhanced CT of the lumbar spine was performed. Bone and soft tissue window settings are submitted as well as coronal and sagittal reconstructions. There are 5 lumbar type vertebra redemonstrated. Persistent levoconvex scoliosis centered at L2 level . Persistent but stable severe grade 1 anterolisthesis L5 on S1. Interval surgery with posterior inte rpedicular ximena and screws at the right L4-S1 level. New artificial disc material at these levels is p resent. Persistent severe disc space narrowing and spurring with multilevel sclerosis at the L1-L2 th rough the L3-L4 levels greatest at the right L2-L3 aspect is redemonstrated. Bilateral laminectomy de fects with spinous process resection L5 level is again seen Axial images show T12-L1 level to appear within normal limits. Axial images at L1-L2 level redemonstrates moderate broad disc bulge with right paracentral disc prot rusion component effacing the anterior thecal sac and mild to moderate right greater than left facet arthropathy and ligamentum flavum hypertrophy. Moderate right greater than left bilateral neural fora socorro narrowing is redemonstrated. No significant change from prior. Axial images at L2-L3 level show posterior spur disc complex and moderate facet arthropathy and ligam entum flavum hypertrophy. Effacement of the anterior and posterior lateral thecal sac it is redemonst rated. Mild left and severe right-sided neural foraminal narrowing is redemonstrated. Axial images at L3-L4 levels show moderate to advanced right greater than left facet arthropathy. New artifact from right-sided L4 screw is noted. Posterior spur disc complex mildly effaces the anterior thecal sac. Severe right-sided neural foraminal narrowing redemonstrated. Axial images at L4-L5 level redemonstrate left-sided laminectomy defect. Artifact from right-sided shah rgical changes noted. Spinal canal is preserved. Advanced facet arthropathy identified. Mild to moder ate bilateral neural foraminal narrowing is seen. There is new artificial disc material noted. Axial images at L5-S1 redemonstrates moderate to advanced facet arthropathy. Spondylolisthesis is red emonstrated. Severe bilateral neural foraminal narrowing redemonstrated greater on the left again see n. New surgical change at the disc space noted. There is partial visualization of at least 3.4 cm thin-walled cyst or cystic lesion left pelvis on th e last axial images. Correlate clinically. Consider pelvic ultrasound to further evaluate. Some diverticula off the left and sigmoid colon are redemonstrated. IMPRESSION: Stable scoliosis. Stable lumbosacral spondylolisthesis. Stable Successful lower lumbar sp ine posterior decompression. Multilevel fairly advanced degenerative changes redemonstrated. New righ t posterior fusion change lower lumbar spine. Alignment is stable.
== END | disposition home or self-care (01) ==
LOC: RADCTMAIN 12:47
PROVIDERS: ATTEND Neurological Surgery
DX: M48.062 Spinal stenosis, lumbar region with neurogenic claudication (principal); M41.86 Other forms of scoliosis, lumbar region; M43.17 Spondylolisthesis, lumbosacral region; M47.817 Spondylosis without myelopathy or radiculopathy, lumbosacral region
CPT/HCPCS: 72131

== ENCOUNTER → 2023-11-03 | Outpatient (CLI) | payer MEDICARE | END | disposition home or self-care (01) | LOC: LABWHC1 09:07 | PROVIDERS: ATTEND Family Medicine | DX: N30.91 Cystitis, unspecified with hematuria (principal); R30.9 Painful micturition, unspecified | CPT/HCPCS: 36415; 81050; 82575 ==

== ENCOUNTER → 2023-11-06 | Outpatient (CLI) | payer MEDICARE ==
[2023-11-06 23:13] LABS: Creatinine 24 Hour,Urine 846.6 mg/24hr (800.0-1800.0)
[2023-11-07 06:14] LABS: Total Volume 24 Hour,Urine 1700 mL; Uric Acid 24 Hour,Urine 0.34 g/24hr (0.25-0.75)
== END | disposition home or self-care (01) ==
LOC: LABWHC1 09:08
PROVIDERS: ATTEND Family Medicine
DX: N30.91 Cystitis, unspecified with hematuria (principal); R30.9 Painful micturition, unspecified
CPT/HCPCS: 36415; 81050; 82575; 84156; 84560

== ENCOUNTER → 2024-09-11 | Outpatient (CLI) | payer MEDICARE ==
--- NOTE | 2024-09-11 16:16 | CT ---
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 Bone and soft tissue window settings are submitted as well as coronal and sagittal reconstructions. CT DLP: 853 [id number] Automated exposure control for dose reduction was used. FINDINGS: There are 5 lumbar type vertebra redemonstrated. Persistent levoconvex scoliosis centered at L2 level . Persistent but stable severe grade 1 anterolisthesis L5 on S1. Persistent surgical change with post erior interpedicular ximena and screws at the right L4-S1 levels redemonstrated. Persistent artificial d isc material at these levels is present. Persistent severe disc space narrowing and spurring with mul tilevel sclerosis at the L1-L2 through the L3-L4 levels is redemonstrated. Bilateral laminectomy defe cts with spinous process resection L5 level is again seen Axial images show T12-L1 level to appear within normal limits. Axial images at L1-L2 level redemonstrates with posterior spur disc complex effacing the anterior the kesha sac and mild to moderate right greater than left facet arthropathy and ligamentum flavum hypertro phy. No significant change from prior. Axial images at L2-L3 level show posterior spur disc complex and moderate facet arthropathy and ligam entum flavum hypertrophy. Effacement of the anterior and posterior lateral thecal sac is redemonstra kianna. Bilateral neuroforaminal narrowing again. Axial images at L3-L4 levels show moderate to advanced right greater than left facet arthropathy. New artifact from right-sided L4 screw is noted. Posterior spur disc complex mildly effaces the anterior thecal sac. Severe right-sided neural foraminal narrowing redemonstrated. Axial images at L4-L5 level redemonstrate left-sided laminectomy defect. Artifact from right-sided shah rgical changes noted. Spinal canal is preserved. Advanced facet arthropathy identified. Some bilatera l neural foraminal narrowing is seen. There is artificial disc material noted. Axial images at L5-S1 redemonstrates moderate to advanced facet arthropathy. Spondylolisthesis is red emonstrated. Severe bilateral neural foraminal narrowing redemonstrated greater on the left again see n. Surgical change at the disc space is redemonstrated. Some diverticula off the colon are redemonstrated. IMPRESSION: Stable scoliosis. Stable lumbosacral spondylolisthesis. Stable lower lumbar spine surgic al change. Multilevel fairly advanced degenerative changes redemonstrated. [facility], , 09/11/2024 4:13 PM
== END | disposition home or self-care (01) ==
LOC: RADCTMAIN 10:01
PROVIDERS: ATTEND Family Medicine
DX: M48.062 Spinal stenosis, lumbar region with neurogenic claudication (principal); M41.86 Other forms of scoliosis, lumbar region; M43.17 Spondylolisthesis, lumbosacral region; M47.816 Spondylosis without myelopathy or radiculopathy, lumbar region; Z98.890 Other specified postprocedural states
CPT/HCPCS: 72131

== ENCOUNTER → 2024-10-23 | Outpatient (CLI) | payer MEDICARE ==
--- NOTE | 2024-10-23 14:35 | US ---
EXAMINATION TYPE: US kidneys/renal and bladder DATE OF EXAM: 10/23/2024 COMPARISON: CT abdomen and pelvis 06/14/2019 CLINICAL INDICATION: Female, 84 years old with history of N39.9 DISORDER OF URINARY SYSTEM, UNSPECIFI ED; UTI TECHNIQUE: Grayscale imaging of the bilateral kidneys and urinary bladder: FINDINGS: EXAM MEASUREMENTS: Right Kidney: 9.4 x 4.6 x 4.5 cm Left Kidney: 9.6 x 4.4 x 4.9 cm Right Kidney: No hydronephrosis or masses seen Left Kidney: No hydronephrosis or masses seen Bladder: wnl Bilateral Jets seen: Yes There is no evidence for hydronephrosis at this point in time. No nephrolithiasis is seen. Corticom edullary differentiation is maintained bilaterally. No masses are identified. The urinary bladder is anechoic without wall thickening or filling defect. Bilateral ureteral jets identified. IMPRESSION: No hydronephrosis or nephrolithiasis. [facility], , 10/23/2024 2:33 PM
== END | disposition home or self-care (01) ==
LOC: RADUSWWP 13:53
PROVIDERS: ATTEND Urology
DX: N39.9 Disorder of urinary system, unspecified (principal); Z87.440 Personal history of urinary (tract) infections
CPT/HCPCS: 76770